=== PATIENT | male | born 1955 | race African-American/Black ===

== ENCOUNTER → 2016-04-03 | Outpatient (CLI) | payer BC ==
[~2016-04-03] MED LIST: ALL180 PO; ASPI81TA28 PO; CARV25TA PO; CRS/10 PO; DOXY100C76 PO; FURO40TA3 PO; FURO80TA63 PO; LISI-729 PO; PRED10TA PO; TRIA3AER NAE
[2016-04-03 10:08] LABS: HEMATOCRIT 46.2 % (42-52); MEAN CELL VOLUME 90.1 fL (80-100); MEAN CORPUSCULAR HGB CONC 32.3 g/dl (32-36); MEAN PLATELET VOLUME 11.3 fL (7.4-10.4); PLATELET COUNT 160 K/uL (130-400); RED BLOOD COUNT 5.13 M/uL (4.7-6.1); WHITE BLOOD COUNT 5.38 K/uL (4.8-10.8)
[2016-04-03 10:16] LABS: URINE APPEARANCE CLEAR (CLEAR); URINE BILIRUBIN NEG (NEG); URINE COLOR YELLOW; URINE EPITHELIAL CELL AUTO 0-5 /lpf (0-5); URINE NITRITE NEG (NEG); URINE PH 7.5 (4.5-7.5); URINE SPECIFIC GRAVITY 1.004 (1.000-1.030); UROBILINOGEN NEG (NEG)
[2016-04-03 10:17] LABS: URINE TOTAL PROTEIN < 5.0 mg/dl (0-11.9)
[2016-04-03 10:22] LABS: MANUAL MICROSCOPIC REQUIRED? NO; REVIEW REQ? NO
[2016-04-03 10:48] LABS: BLOOD UREA NITROGEN 19 mg/dl (7-18); BUN/CREATININE RATIO 12.1 (10-20); CALCIUM 8.6 mg/dl (8.5-10.1); CARBON DIOXIDE 30 mmol/L (21-32); CHLORIDE 103 mmol/L (98-107); GLUCOSE 101 mg/dl (70-99); PHOSPHORUS 2.9 mg/dl (2.5-4.9); POTASSIUM 3.5 mmol/L (3.5-5.1); SODIUM 141 mmol/L (136-145)
== END | disposition home or self-care (01) ==
LOC: C.LAB1850 09:22
PROVIDERS: ATTEND Internal Medicine Nephrology
DX: N25.81 Secondary hyperparathyroidism of renal origin (principal); N18.3 Chronic kidney disease, stage 3 (moderate); I12.9 Hypertensive chronic kidney disease with stage 1 through stage 4 chronic kidney disease, or unspecified chronic kidney disease; D64.9 Anemia, unspecified; E55.9 Vitamin D deficiency, unspecified

== ENCOUNTER 2016-09-04 17:01 | Inpatient (IN) | payer BC ==
[~2016-09-04] VITALS: Ht 182.9 cm; Wt 98.9 kg
[~2016-09-04 17:01] MED LIST changes: -ASPI81TA28 PO; -CARV25TA PO; -CRS/10 PO; -DOXY100C76 PO; -FURO40TA3 PO; -FURO80TA63 PO; -LISI-729 PO; -PRED10TA PO
[2016-09-04] MEDS ORDERED: CARV25TA PO (17:52)
[2016-09-04] MEDS ORDERED: CRS/10 PO (17:52)
[2016-09-04] MEDS ORDERED: DOXY100C76 PO (17:52)
[2016-09-04] MEDS ORDERED: FURO80TA63 PO (17:52)
[2016-09-04] MEDS ORDERED: LISI-729 PO (17:52)
[2016-09-04] MEDS ORDERED: ASPI81TA28 PO (17:52)
--- NOTE | 2016-09-04 18:20 | EMERGENCY ROOM VISIT NOTE ---
History Report prepared by Lizzeth: Latoya Walker Under the Supervision of: Dr. Kenn Chung M.D. First contact with patient: 18:07 Chief Complaint: SWELLING TO EXTREMITY Stated Complaint: SWELLING ON RT SIDE OF BODY History of Present Illness The patient is a 60 year old male who presents to the Emergency Room with complaints of constant right sided swelling beginning 2 and a half weeks ago. The patient states that he noticed his right foot swelling first 2 and a half weeks ago. He reports that he was feeling fine at his PCP appointment 1 month ago and 2 weeks later he was bit by something and started noticing swelling in his right foot. He notes that he was seen by a doctor and was put on Doxycycline without relief of his swelling. The patient complains of difficulty walking and weakness in the right arm and leg. He denies any slurred speech, fever, abdominal pain, chest pain, shortness of breath, diarrhea, urinary symptoms, back pain, and a rash. The patient denies any heavy alcohol use. He reports that he has a history of heart failure and takes baby aspirin. He notes that he has never had any symptoms similar to this before. Source of History: patient Onset: 2 and a half weeks ago Position: arm (right), leg (right) Quality: other (swelling) Timing: constant Associated Symptoms: + weakness, No fevers, No chest pain, No SOB, No abdominal pain, No back pain, No diarrhea, No urinary symptoms, No rash Note: The patient complains of difficulty walking. He denies any slurred speech. Review of Systems See HPI for pertinent positives & negatives. A total of 10 systems reviewed and were otherwise negative. Past Medical & Surgical Medical Problems: (1) CHF (congestive heart failure) Family History No pertinent family history stated. Social History Smoking Status: Never Smoker Alcohol Use: occasionally Marital Status: Housing Status: lives with significant other Occupation Status: retired Current/Historical Medications Scheduled Aspirin (Aspirin Ec), 81 MG PO DAILY Carvedilol (Coreg), 25 MG PO BID Doxycycline Monohydrate (Monodox), 100 MG PO BID Furosemide (Lasix), 80 MG PO DAILY Lisinopril (Prinivil), 5 MG PO BID Rosuvastatin Calcium (Crestor), 10 MG PO HS Allergies Coded Allergies: No Known Allergies (Verified , 09/04/16) Physical Exam Vital Signs Date Time Temp Pulse Resp B/P (MAP) Pulse Ox O2 Delivery O2 Flow Rate FiO2 09/04/16 20:59 83 20 135/85 97 Room Air 09/04/16 19:30 37.6 81 20 126/86 97 Room Air 09/04/16 17:17 37.0 82 18 101/69 99 Room Air Physical Exam GENERAL: Patient is well appearing and in no acute distress. HEENT: No acute trauma, normocephalic atraumatic, mucous membranes moist, no nasal congestion, no scleral icterus. NECK: No stridor, no adenopathy, no meningismus, trachea is midline. LUNGS: No dyspnea. Clear to auscultation and equal bilaterally. No wheeze, no rhonchi. HEART: Regular rate and rhythm. No murmurs, rubs, gallops appreciated. ABDOMEN: Soft, nontender, bowel sounds positive, no masses appreciated, no peritonitis. BACK: No midline tenderness, no CVA tenderness EXTREMITIES: Normal motion all extremities, no cyanosis, non-pitting edema of right arm and right leg, significant weakness of right arm specifically hand, and right leg specifically foot. NEUROLOGIC: Alert and oriented, no acute motor or sensory deficits, cranial nerves grossly intact. Patient has significant weakness of right arm specifically hand, and right leg specifically foot. SKIN: No rash, no jaundice, no diaphoresis. Medical Decision & Procedures ER Provider Diagnostic Interpretation: Radiology results and stated below per my review and radiologist interpretation: CT OF THE HEAD WITHOUT CONTRAST FINDINGS: Note is made of an 8 mm hyperdense focus with possible central calcification within the posterior left frontal lobe shown on axial image 23 of 32. There is an old right parietal infarct. There is a cavum septum pellucidum. Moderate white matter hypodensities are noted. Basilar cisterns are patent. There are no extra axial collections. There are no CT findings to suggest acute dural sinus thrombosis or acute territorial infarct. No significant calvarial abnormalities are present. Visualized portions of the sinuses and mastoid air cells are clear. IMPRESSION: 1. 8 mm hyperdense focus within the posterior left frontal lobe. This favors a small hyperdense lesion such as a cavernoma. However, a small focus of hemorrhage could appear similar. Either a short-term follow-up head CT or MRI of the brain is recommended. 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 3. Moderate white matter hypodensities. While nonspecific, these statistically reflect small vessel disease. Electronically signed by: Shadi Vogel M.D. 09/04/2016 7:09 PM Dictated Date/Time: 09/04/2016 7:03 PM CHEST ONE VIEW PORTABLE FINDINGS: Lung volumes are normal. Lungs are clear. No pneumothorax or pleural effusion is present. Cardiac size is normal. Mediastinal contours are normal. There is no evidence of pulmonary edema. IMPRESSION: No acute cardiopulmonary findings. Electronically signed by: Shadi Vogel M.D. 09/04/2016 7:12 PM Dictated Date/Time: 09/04/2016 7:12 PM Laboratory Results 09/04/16 18:11 Red Blood Count 4.70, Mean Corpuscular Volume 87.4, Mean Corpuscular Hemoglobin 28.1, Mean Corpuscular Hemoglobin Concent 32.1, Mean Platelet Volume 9.4, Neutrophils (%) (Auto) 74.7, Lymphocytes (%) (Auto) 14.0, Monocytes (%) (Auto) 9.8, Eosinophils (%) (Auto) 0.7, Basophils (%) (Auto) 0.2, Neutrophils # (Auto) 8.42, Lymphocytes # (Auto) 1.58, Monocytes # (Auto) 1.11, Eosinophils # (Auto) 0.08, Basophils # (Auto) 0.02 09/04/16 18:11 Test 09/04/16 18:11 White Blood Count 11.28 K/uL (4.8-10.8) Red Blood Count 4.70 M/uL (4.7-6.1) Hemoglobin 13.2 g/dL (14.0-18.0) Hematocrit 41.1 % (42-52) Mean Corpuscular Volume 87.4 fL (80-100) Mean Corpuscular Hemoglobin 28.1 pg (25-34) Mean Corpuscular Hemoglobin Concent 32.1 g/dl (32-36) Platelet Count 395 K/uL (130-400) Mean Platelet Volume 9.4 fL (7.4-10.4) Neutrophils (%) (Auto) 74.7 % Lymphocytes (%) (Auto) 14.0 % Monocytes (%) (Auto) 9.8 % Eosinophils (%) (Auto) 0.7 % Basophils (%) (Auto) 0.2 % Neutrophils # (Auto) 8.42 K/uL (1.4-6.5) Lymphocytes # (Auto) 1.58 K/uL (1.2-3.4) Monocytes # (Auto) 1.11 K/uL (0.11-0.59) Eosinophils # (Auto) 0.08 K/uL (0-0.5) Basophils # (Auto) 0.02 K/uL (0-0.2) RDW Standard Deviation 41.0 fL (36.4-46.3) RDW Coefficient of Variation 12.8 % (11.5-14.5) Immature Granulocyte % (Auto) 0.6 % Immature Granulocyte # (Auto) 0.07 K/uL (0.00-0.02) Erythrocyte Sedimentation Rate > 90 mm/hr (0-14) Anion Gap 11.0 mmol/L (3-11) Est Creatinine Clear Calc Drug Dose 55.8 ml/min Estimated GFR () 50.0 Estimated GFR (Non- 43.2 BUN/Creatinine Ratio 15.5 (10-20) Calcium Level 9.6 mg/dl (8.5-10.1) Total Bilirubin 1.1 mg/dl (0.2-1) Direct Bilirubin mg/dl (0-0.2) Aspartate Amino Transf (AST/SGOT) 38 U/L (15-37) Alanine Aminotransferase (ALT/SGPT) 62 U/L (12-78) Alkaline Phosphatase 89 U/L (45-117) Total Creatine Kinase 121 U/L (39-308) Creatine Kinase MB 0.6 ng/ml (0.5-3.6) Creatine Kinase MB Ratio 0.5 (0-3.0) Troponin I < 0.015 ng/ml (0-0.045) C-Reactive Protein 9.88 mg/dl (0-0.29) Pro-B-Type Natriuretic Peptide 155 pg/ml (0-900) Total Protein 8.7 gm/dl (6.4-8.2) Albumin 2.9 gm/dl (3.4-5.0) Chemistry Specimen Hemolysis Rheumatoid Factor < 10.0 U/mL (0-15) Lyme Disease IgG Antibody NEG (NEG) Lyme Disease IgM Antibody NEG (NEG) Laboratory results as reviewed by me. ED Course 1807: The patient was evaluated in room A11. A complete history and physical exam was performed. 1915: I spoke to Dr. Grimm of neurology. He agrees that we can do the workup here and she advised that I discus with the hospitalist getting an MRI and MRA of the brain. 1920: Discussed the patient's case with Dr. Morataya. The patient will be evaluated for further treatment and disposition. 1922: I reevaluated the patient and he is stable. 1936: Upon reevaluation, the patient is doing well. Discussed results and treatment plan with the patient. He verbalized understanding and agreement with the treatment plan. The patient will be evaluated for further management. Medical Decision Differential: Stroke, DVT, CHF, Arterial Occlusion, Infectious, Joint Effusion, Trauma, Lymphedema, Idiopathic, Trauma, amongst other pathologies entertained. Medication Reconciliation: I attest that I have personally reviewed the patient 's current medication list. Blood pressure screening: Patient was found to have normal blood pressure on screening and does not require follow-up. He will be monitored by hospitalist. 60 yr old male with right arm and leg weakness ongoing for the last 2 weeks. Initially thought to be due to bug bite and stared on Doxy. Admits weakness which by exam is actually quite profound. Admits ongoing for 2 weeks thus he is in no way TPA candidate for stroke nor is there reason to call stroke alert. Given right arm/leg weakness sent to CT showing left posterior frontal lobe abnormality of cavernoma vs hemorrhagic area. No shift nor evidence of need for acute neurosurgical intervention. Other labs with some mild Cr elevation but this is baseline for him. Lyme negative. US leg/arm negative for dvt. Discussed with Neuro who agrees inpatient work-up here. Discussed with hospitalist for further evaluation/treatment. Consults Time Called: 1909 Consulting Physician: Dr. Grimm - Neurology Returned Call: [address] Grimm of neurology. He agrees that we can do the workup here and she advised that I discus with the hospitalist getting an MRI and MRA of the brain. Additional Consults: Time Called: 1915 Consulted Physician: Dr. Walter Costa Returned Call: 1920 Additional Comments: [facility] The patient will be evaluated for further treatment and disposition. Impression Primary Impression: Right sided weakness Additional Impressions: Swelling of right upper extremity Swelling of right lower extremity Abnormal head CT Scribe Attestation The scribe's documentation has been prepared under my direction and personally reviewed by me in its entirety. I confirm that the note above accurately reflects all work, treatment, procedures, and medical decision making performed by me. Departure Information Dispostion Being Evaluated By Hospitalist Referrals Robert Dickey PA-C (PCP) Patient Instructions My [facility] Problem Qualifiers
[2016-09-04 18:25] LABS: BASO % 0.2 %; BASO ABS # 0.02 K/uL (0-0.2); COMPLETE YES; EOS % 0.7 %; HEMATOCRIT 41.1 % (42-52); IG% 0.6 %; LYMPH ABS # 1.58 K/uL (1.2-3.4); MEAN CELL VOLUME 87.4 fL (80-100); MEAN CORPUSCULAR HEMOGLOBIN 28.1 pg (25-34); MEAN CORPUSCULAR HGB CONC 32.1 g/dl (32-36); MEAN PLATELET VOLUME 9.4 fL (7.4-10.4); MONO % 9.8 %; NEUT % 74.7 %; PLATELET COUNT 395 K/uL (130-400); WHITE BLOOD COUNT 11.28 K/uL (4.8-10.8)
--- NOTE | 2016-09-04 19:11 | DIAGNOSTIC IMAGING REPORT ---
CT OF THE HEAD WITHOUT CONTRAST CLINICAL HISTORY: Generalized Weakness COMPARISON STUDY: No previous studies for comparison. CT DOSE: 884.08 mGy.cm TECHNIQUE: Helical axial images of the head were obtained without IV contrast. Automated exposure control was utilized for the study. FINDINGS: Note is made of an 8 mm hyperdense focus with possible central calcification within the posterior left frontal lobe shown on axial image 23 of 32. There is an old right parietal infarct. There is a cavum septum pellucidum. Moderate white matter hypodensities are noted. Basilar cisterns are patent. There are no extra axial collections. There are no CT findings to suggest acute dural sinus thrombosis or acute territorial infarct. No significant calvarial abnormalities are present. Visualized portions of the sinuses and mastoid air cells are clear. IMPRESSION: 1. 8 mm hyperdense focus within the posterior left frontal lobe. This favors a small hyperdense lesion such as a cavernoma. However, a small focus of hemorrhage could appear similar. Either a short-term follow-up head CT or MRI of the brain is recommended. 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 3. Moderate white matter hypodensities. While nonspecific, these statistically reflect small vessel disease. Electronically signed by: Shadi Vogel M.D. 09/04/2016 7:09 PM Dictated Date/Time: 09/04/2016 7:03 PM
--- NOTE | 2016-09-04 19:14 | DIAGNOSTIC IMAGING REPORT ---
CHEST ONE VIEW PORTABLE CLINICAL HISTORY: Generalized Weakness COMPARISON STUDY: Chest radiograph January 21, 2007. FINDINGS: Lung volumes are normal. Lungs are clear. No pneumothorax or pleural effusion is present. Cardiac size is normal. Mediastinal contours are normal. There is no evidence of pulmonary edema. IMPRESSION: No acute cardiopulmonary findings. Electronically signed by: Shadi Vogel M.D. 09/04/2016 7:12 PM Dictated Date/Time: 09/04/2016 7:12 PM
[2016-09-04 19:50] LABS: ALKALINE PHOSPHATASE 89 U/L (45-117); ALT/SGPT 62 U/L (12-78); BLOOD UREA NITROGEN 26 mg/dl (7-18); BUN/CREATININE RATIO 15.5 (10-20); CALCIUM 9.6 mg/dl (8.5-10.1); CARBON DIOXIDE 27 mmol/L (21-32); CHLORIDE 101 mmol/L (98-107); GLUCOSE 85 mg/dl (70-99)
[2016-09-04 20:02] LABS: LYME DISEASE AB IGG NEG (NEG); LYME DISEASE AB IGM NEG (NEG)
[2016-09-04 20:51] LABS: AST/SGOT 38 U/L (15-37); CKMB/CK RATIO 0.5 (0-3.0); POTASSIUM 4.3 mmol/L (3.5-5.1); SODIUM 139 mmol/L (136-145)
--- NOTE | 2016-09-04 20:59 | DIAGNOSTIC IMAGING REPORT ---
RIGHT UPPER EXTREMITY VENOUS DOPPLER ULTRASOUND CLINICAL HISTORY: Right arm swelling. COMPARISON STUDY: No previous studies for comparison. FINDINGS: No deep venous thrombus was identified within the right upper extremity. IMPRESSION: No right upper extremity deep venous thrombus identified. Electronically signed by: Shadi Vogel M.D. 09/04/2016 8:58 PM Dictated Date/Time: 09/04/2016 8:57 PM
--- NOTE | 2016-09-04 21:00 | DIAGNOSTIC IMAGING REPORT ---
RIGHT LOWER EXTREMITY VENOUS DOPPLER CLINICAL HISTORY: Right lower extremity swelling. COMPARISON STUDY: No previous studies for comparison. TECHNIQUE: Sonography of the deep venous system of the right lower extremity was performed. Compression and augmentation were evaluated. FINDINGS: The common femoral, superficial femoral and popliteal veins were compressible. Augmentation was normal. Flow was shown within the deep calf vessels. IMPRESSION: No evidence of deep venous thrombus within the right lower extremity. Electronically signed by: Shadi Vogel M.D. 09/04/2016 8:58 PM Dictated Date/Time: 09/04/2016 8:58 PM
[2016-09-04] MEDS ORDERED: ACETAMINOPHEN 325 MG TAB PO PRN (21:45)
[2016-09-04] MEDS ORDERED: MAGNESIUM HYDROXIDE SUSP 30 ML UDC PO PRN (21:45)
[2016-09-04] MEDS ORDERED: ALUMINUM/MAGNESIUM/SIMETH (MAALOX MAX) 30 ML UDC PO PRN (21:45)
[2016-09-04] MEDS ORDERED: ONDANSETRON INJ 2 MG/ML 2 ML VIAL IV PRN (21:45)
--- NOTE | 2016-09-04 22:54 | DIAGNOSTIC IMAGING REPORT ---
RIGHT KNEE 3 VIEWS CLINICAL HISTORY: Right knee swelling. COMPARISON: None FINDINGS: Alignment of the right knee is anatomic. There is spurring of the tibial tubercle. There is a large right knee joint effusion. No fracture is identified. There is soft tissue swelling of the right knee. IMPRESSION: 1. No acute fracture. 2. Large right knee joint effusion, a nonspecific finding. Electronically signed by: Shadi Vogel M.D. 09/04/2016 10:52 PM Dictated Date/Time: 09/04/2016 10:51 PM
[2016-09-04 22:56] LABS: C-REACTIVE PROTEIN 9.88 mg/dl (0-0.29); RHEUMATOID FACTOR < 10.0 U/mL (0-15)
--- NOTE | 2016-09-04 22:58 | DIAGNOSTIC IMAGING REPORT ---
RIGHT ANKLE MIN 3 VIEWS ROUTINE CLINICAL HISTORY: Right ankle pain and swelling. Decreased range of motion. COMPARISON: None FINDINGS: Alignment of the right ankle is anatomic. There is posterior and plantar calcaneal spurring. There is moderate vascular calcification. There is diffuse soft tissue swelling. Talar dome is intact. There is no acute fracture. IMPRESSION: 1. No acute fracture or dislocation of the right ankle. 2. Marked soft tissue swelling of the right ankle. Electronically signed by: Shadi Vogel M.D. 09/04/2016 10:57 PM Dictated Date/Time: 09/04/2016 10:56 PM
--- NOTE | 2016-09-04 23:02 | DIAGNOSTIC IMAGING REPORT ---
RIGHT FOOT MIN 3 VIEWS ROUTINE CLINICAL HISTORY: Right foot pain and swelling. COMPARISON: None FINDINGS: Tarsometatarsal joints are intact. There are suspected erosions of the right first metatarsal head. There is soft tissue swelling along the medial aspect the right first metatarsophalangeal joint. Joint spaces are relatively preserved. There may also be erosions of the distal aspect of the proximal phalanx of the right first toe. There is posterior plantar calcaneal spurring. There is no acute fracture within the right foot. IMPRESSION: 1. No acute fracture. 2. Erosions of the right first metatarsal head with associated soft tissue swelling. The findings raise the possibility of gout. Electronically signed by: Shadi Vogel M.D. 09/04/2016 11:01 PM Dictated Date/Time: 09/04/2016 10:58 PM
--- NOTE | 2016-09-04 23:04 | DIAGNOSTIC IMAGING REPORT ---
RIGHT WRIST MIN 3 VIEWS ROUTINE CLINICAL HISTORY: Right wrist pain and swelling. COMPARISON: None FINDINGS: No acute fracture is identified. Alignment is anatomic. There are equivocal small erosions adjacent to the proximal carpal row and distal radioulnar joint. IMPRESSION: 1. No acute fracture or dislocation of the right wrist. 2. Possible erosions of the proximal carpal row/distal radioulnar joint, a nonspecific finding. Electronically signed by: Shadi Vogel M.D. 09/04/2016 11:03 PM Dictated Date/Time: 09/04/2016 10:57 PM
[2016-09-04] MEDS ORDERED: GADAVIST IV PRN (23:45)
[2016-09-05] VITALS (10 sets, daily range): BP systolic 112–140; BP diastolic 70–75; PULSE 70–88; TEMP 36.5–37.4; O2SAT 94–100; Ht 182.9 cm; Wt 98.9 kg
--- NOTE | 2016-09-05 00:09 | History and Physical ---
History & Physical Date & Time of Service: Sep 04, 2016 at 23:54 Chief Complaint: Abnormal Head Ct,Swelling Of Right Lower Extremity Primary Care Physician: Robert Dickey PA-C History of Present Illness Source: patient, family, clinic records This is a 60 year old male a PMH of idiopathic cardiomyopathy and mild systolic CHF, last EF of ~ 47%, CKD stage 3, HTN, HLD presents with R knee, ankle, wrist swelling for the past few weeks. States that his R foot began swelling up and becoming painful a few weeks back; he went to his PCP on 08/20 and was given doxycycline for possible tick-borne illness/arthritis; he states that initially he felt better, but then it worsened again. His knee became significantly painful to any ROM to the point where he was using his cane. He then noticed his right wrist swelling and became concerned and came to the ER. Upon presentation, he had a head CT done due to significant weakness on the R side. Head CT showed an 8mm cavernoma vs. bleed. Neurology consulted and recommended keeping the patient here and performing MRI/MRA of the head. Currently, he has very decreased and painful ROM of the knee/ankle; swelling of foot/ankle/knee on the R; no rash, not warm to touch, no cuts/abrasions; no trauma noted by the patient. No fevers/chills, no shortness of breath/chest pain , no nausea/vomiting/diarrhea, no urinary symptoms. Past Medical/Surgical History Medical Problems: (1) CHF (congestive heart failure) Status: Resolved Social History Smoking Status: Never Smoker Marital Status: Occupational Status: retired Immunizations History of Influenza Vaccine: No History of Tetanus Vaccine?: YES-IN THE 1980S History of Pneumococcal: No History of Hepatitis B Vaccine: YES-IN THE Multi-Drug Resistant Organisms History of MDRO: No Allergies Coded Allergies: No Known Allergies (Verified , 09/04/16) Home Medications Scheduled Aspirin (Aspirin Ec), 81 MG PO DAILY Carvedilol (Coreg), 25 MG PO BID Doxycycline Monohydrate (Monodox), 100 MG PO BID Furosemide (Lasix), 80 MG PO DAILY Lisinopril (Prinivil), 5 MG PO BID Rosuvastatin Calcium (Crestor), 10 MG PO HS Review of Systems Constitutional: No fever, No chills, No weakness Eyes: No worsening of vision ENT: No hearing loss Respiratory: No cough, No sputum, No wheezing, No shortness of breath, No dyspnea on exertion, No dyspnea at rest Cardiovascular: + edema, No chest pain, No palpitations Abdomen: No pain, No nausea, No vomiting, No diarrhea, No constipation Musculoskeletal: + joint pain (R knee, ankle, wrist, foot), + muscle pain, + swelling, + calf pain Genitourinary - Male: No hematuria, No dysuria, No urinary frequency, No urinary urgency Neurologic: No paralysis, No weakness, No numbness/tingling, No vertigo, No balance problems Psychiatric: No depression symptoms, No anxiety, No insomnia Endocrine: No fatigue Hematologic / Lymphatic: No abnormal bleeding/bruising Integumentary: No rash, No itch, No new/changing skin lesions, No color change , No bleeding Allergic / Immunologic: No environmental allergies, No seasonal allergies Physical Exam Vital Signs Date Time Temp Pulse Resp B/P (MAP) Pulse Ox O2 Delivery O2 Flow Rate FiO2 09/04/16 22:46 52 20 107/60 99 Room Air 09/04/16 20:59 83 20 135/85 97 Room Air 09/04/16 19:30 37.6 81 20 126/86 97 Room Air 09/04/16 17:17 37.0 82 18 101/69 99 Room Air General Appearance: no apparent distress Head: normocephalic, atraumatic Eyes: normal inspection ENT: hearing grossly normal Neck: supple Respiratory/Chest: chest non-tender, lungs clear, normal breath sounds, no respiratory distress, no accessory muscle use Cardiovascular: regular rate, rhythm, no murmur, normal peripheral pulses Abdomen/GI: normal bowel sounds, non tender, soft, no organomegaly Back: normal inspection, no CVA tenderness, no muscle spasm, normal range of motion Extremities/Musculoskelatal: + swelling, + pertinent finding (swelling, tenderness to palpation, decreased/painful ROM of the R wrist, R ankle, R foot, R knee) Neurologic/Psych: alert, normal mood/affect Skin: normal color Lymphatic: no adenopathy Diagnostics Laboratory Results Results Past 24 Hours Test 09/04/16 18:11 Range/Units White Blood Count 11.28 4.8-10.8 K/uL Red Blood Count 4.70 4.7-6.1 M/uL Hemoglobin 13.2 14.0-18.0 g/dL Hematocrit 41.1 42-52 % Mean Corpuscular Volume 87.4 80-100 fL Mean Corpuscular Hemoglobin 28.1 25-34 pg Mean Corpuscular Hemoglobin Concent 32.1 32-36 g/dl Platelet Count 395 130-400 K/uL Mean Platelet Volume 9.4 7.4-10.4 fL Neutrophils (%) (Auto) 74.7 % Lymphocytes (%) (Auto) 14.0 % Monocytes (%) (Auto) 9.8 % Eosinophils (%) (Auto) 0.7 % Basophils (%) (Auto) 0.2 % Neutrophils # (Auto) 8.42 1.4-6.5 K/uL Lymphocytes # (Auto) 1.58 1.2-3.4 K/uL Monocytes # (Auto) 1.11 0.11-0.59 K/uL Eosinophils # (Auto) 0.08 0-0.5 K/uL Basophils # (Auto) 0.02 0-0.2 K/uL RDW Standard Deviation 41.0 36.4-46.3 fL RDW Coefficient of Variation 12.8 11.5-14.5 % Immature Granulocyte % (Auto) 0.6 % Immature Granulocyte # (Auto) 0.07 0.00-0.02 K/uL Erythrocyte Sedimentation Rate > 90 0-14 mm/hr Sodium Level 139 136-145 mmol/L Potassium Level 4.3 3.5-5.1 mmol/L Chloride Level 101 98-107 mmol/L Carbon Dioxide Level 27 21-32 mmol/L Anion Gap 11.0 3-11 mmol/L Blood Urea Nitrogen 26 7-18 mg/dl Creatinine 1.70 0.60-1.40 mg/dl Est Creatinine Clear Calc Drug Dose 55.8 ml/min Estimated GFR () 50.0 Estimated GFR (Non- 43.2 BUN/Creatinine Ratio 15.5 10-20 Random Glucose 85 70-99 mg/dl Calcium Level 9.6 8.5-10.1 mg/dl Total Bilirubin 1.1 0.2-1 mg/dl Direct Bilirubin 0-0.2 mg/dl Aspartate Amino Transf (AST/SGOT) 38 15-37 U/L Alanine Aminotransferase (ALT/SGPT) 62 12-78 U/L Alkaline Phosphatase 89 45-117 U/L Total Creatine Kinase 121 39-308 U/L Creatine Kinase MB 0.6 0.5-3.6 ng/ml Creatine Kinase MB Ratio 0.5 0-3.0 Troponin I < 0.015 0-0.045 ng/ml C-Reactive Protein 9.88 0-0.29 mg/dl Pro-B-Type Natriuretic Peptide 155 0-900 pg/ml Total Protein 8.7 6.4-8.2 gm/dl Albumin 2.9 3.4-5.0 gm/dl Chemistry Specimen Hemolysis Rheumatoid Factor < 10.0 0-15 U/mL Lyme Disease IgG Antibody NEG NEG Lyme Disease IgM Antibody NEG NEG Diagnostic Radiology CHEST ONE VIEW PORTABLE CLINICAL HISTORY: Generalized Weakness COMPARISON STUDY: Chest radiograph January 21, 2007. FINDINGS: Lung volumes are normal. Lungs are clear. No pneumothorax or pleural effusion is present. Cardiac size is normal. Mediastinal contours are normal. There is no evidence of pulmonary edema. IMPRESSION: No acute cardiopulmonary findings. CT OF THE HEAD WITHOUT CONTRAST CLINICAL HISTORY: Generalized Weakness COMPARISON STUDY: No previous studies for comparison. CT DOSE: 884.08 mGy.cm TECHNIQUE: Helical axial images of the head were obtained without IV contrast. Automated exposure control was utilized for the study. FINDINGS: Note is made of an 8 mm hyperdense focus with possible central calcification within the posterior left frontal lobe shown on axial image 23 of 32. There is an old right parietal infarct. There is a cavum septum pellucidum. Moderate white matter hypodensities are noted. Basilar cisterns are patent. There are no extra axial collections. There are no CT findings to suggest acute dural sinus thrombosis or acute territorial infarct. No significant calvarial abnormalities are present. Visualized portions of the sinuses and mastoid air cells are clear. IMPRESSION: 1. 8 mm hyperdense focus within the posterior left frontal lobe. This favors a small hyperdense lesion such as a cavernoma. However, a small focus of hemorrhage could appear similar. Either a short-term follow-up head CT or MRI of the brain is recommended. 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 3. Moderate white matter hypodensities. While nonspecific, these statistically reflect small vessel disease. Impression Assessment and Plan This is a 60 year old male a PMH of idiopathic cardiomyopathy and mild systolic CHF, last EF of ~ 47%, CKD stage 3, HTN, HLD presents with R knee, ankle, wrist swelling for the past few weeks. Acute Polyarticular Swelling R knee, ankle, foot, wrist swelling Lyme negative check CRP, ESR, Rheumatoid Factor radiographs pending check urinalysis may need rheumatology input if persistent refusing pain medications at this time Cavernoma 8mm cavernoma noted on Head CT will check Brain MRI with and without contrast, check MRA neurology consultation monitor in tele hold aspirin Idiopathic Cardiomyopathy last echo, with EF ~47% updated echo hold Lasix continue Coreg, Lisinopril CKD stage 3 creatinine = 1.7 creat seems to be around baseline hold Lasix for now, check echo, may need lower dose of Lasix to restart for discharge DVT ppx SCD on the L no heparin; possible bleed, check MRI FULL CODE VTE Prophylaxis VTE Risk Assessment Done? Y/N: Yes Risk Level: Low
[2016-09-05] MEDS: CARVEDILOL 25 MG TAB PO SCH ×3 (00:20→20:49)
[2016-09-05] MEDS: LISINOPRIL 5 MG TAB PO SCH ×3 (00:21→20:49)
[2016-09-05] MEDS: ROSUVASTATIN CALCIUM 10 MG TAB PO SCH ×2 (00:21→20:48)
--- NOTE | 2016-09-05 06:31 | DIAGNOSTIC IMAGING REPORT ---
Brain MRA HISTORY: Mental status change f/u cavernoma; r/o bleed TECHNIQUE: 3-D [id number] MRA of the brain was performed without contrast. COMPARISON STUDY: None. FINDINGS: Visualized intracranial internal carotid arteries, distal vertebral arteries, and basilar artery are widely patent. There is no significant stenosis, occlusion, or aneurysm seen within the bilateral ACAs, MCAs, or rn lpn cna. 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 Electronically signed by: Robert Callahan M.D. 09/05/2016 6:29 AM Dictated Date/Time: 09/05/2016 6:29 AM
[2016-09-05 06:43] LABS: CALCIUM 9.3 mg/dl (8.5-10.1); CREATININE 1.5 mg/dl (0.60-1.40); POTASSIUM 3.8 mmol/L (3.5-5.1)
[2016-09-05 06:55] LABS: HEMATOCRIT 36.9 % (42-52); MEAN CELL VOLUME 87.9 fL (80-100); MEAN CORPUSCULAR HEMOGLOBIN 28.3 pg (25-34); MEAN CORPUSCULAR HGB CONC 32.2 g/dl (32-36); PLATELET COUNT 364 K/uL (130-400); WHITE BLOOD COUNT 8.71 K/uL (4.8-10.8)
--- NOTE | 2016-09-05 07:12 | DIAGNOSTIC IMAGING REPORT ---
MRI OF THE BRAIN COMBO CLINICAL HISTORY: Follow-up abnormal CT scan. COMPARISON STUDY: CT of the brain dated 09/04/2016. TECHNIQUE: MRI of the brain was performed utilizing various T1 and T2-weighted sequences in the axial, sagittal, and coronal planes. Contrast-enhanced sequences were acquired following the administration of 9.5 cc of Gadavist. FINDINGS: Brain parenchyma: There are age-related involutional changes noting mild to moderate patchy subcortical and periventricular microangiopathic disease. There is a small focus of right parietal encephalomalacia consistent with a remote infarct. There is a faint focus of hyperenhancement seen in the left parietal lobe on axial postcontrast image #16. There is faint susceptibility artifact in this region, and this corresponds to the abnormality seen by CT. A tiny cavernoma is favored. No additional similar-appearing lesions are identified. No additional abnormal enhancement is seen on the postcontrast images. There is no hemorrhage or mass effect. There is no restricted diffusion to suggest acute ischemia. Escobar-white matter differentiation is preserved. No extra-axial fluid collection is seen. The cerebellar tonsils are normal in configuration. Ventricles, sulci, and cisterns: Prominent secondary to involutional change. Cavum septum pellucidum is incidentally noted. Pituitary and sella: Unremarkable. Intracranial vasculature: Normal flow voids are maintained at the skull base. Orbits: The bony orbits are grossly intact. Orbital contents are normal in appearance. Sinuses and mastoids: Clear. Calvarium: Unremarkable. Cervical cord: Partially visualized cervical spinal cord is normal in morphology and signal intensity. IMPRESSION: 1. There is a faint focus of hypervascularity in the left parietal lobe with trace associated susceptibility artifact. This is nonspecific but favors a tiny cavernoma. Six-month follow-up MRI is recommended for reassessment. 2. No acute intracranial abnormality is seen. There is no acute hemorrhage, mass effect, or evidence of acute ischemia. Electronically signed by: Rommel Bowling M.D. 09/05/2016 7:11 AM Dictated Date/Time: 09/05/2016 7:06 AM
[2016-09-05] MEDS ORDERED: ETHYL CHLORIDE AER SPR 100 ML CAN EXT ONE (11:15)
--- NOTE | 2016-09-05 12:31 | Progress Note ---
Medicine Progress Note Date & Time of Visit: Sep 05, 2016 at 12:09. Subjective Pt was seen and examined Lying in bed comfortable with at bedside Pt said that he feels ok He said that the right knee swelling seems to improve slightly He said that he casing fluid tender his right foot is very swelling he believes that he twisted his right ankle he does have some weakness in the right hand in the last few days denies any chest pain, palpitation, dizziness and SOB Objective Last 8 Hrs Date Time Temp Pulse Resp B/P (MAP) Pulse Ox O2 Delivery O2 Flow Rate FiO2 09/05/16 11:28 36.7 70 16 116/72 (87) 100 Room Air 09/05/16 08:02 36.5 74 18 117/74 (88) 94 Room Air 09/05/16 08:00 Room Air 09/05/16 08:00 94 Room Air Physical Exam: General- No acute distress Head- atraumatic Eyes- PERRL, EOMI ENT- oropharynx clear Neck- supple, no JVD Lungs- clear to auscultation and percussion Heart- regular rhythm; no murmur Abdomen- normal bowel sounds, soft Extremities- no calf tenderness, right knee and right foot swelling and tenderness Neuro- alert, oriented x 3; PERRL, EOMI; no facial palsy; no dysarthria; slight decrease in RUE strength Skin- warm & dry Laboratory Results: Last 24 Hours Test 09/04/16 18:11 09/05/16 05:50 White Blood Count 11.28 K/uL 8.71 K/uL Red Blood Count 4.70 M/uL 4.20 M/uL Hemoglobin 13.2 g/dL 11.9 g/dL Hematocrit 41.1 % 36.9 % Mean Corpuscular Volume 87.4 fL 87.9 fL Mean Corpuscular Hemoglobin 28.1 pg 28.3 pg Mean Corpuscular Hemoglobin Concent 32.1 g/dl 32.2 g/dl Platelet Count 395 K/uL 364 K/uL Mean Platelet Volume 9.4 fL 10.0 fL Neutrophils (%) (Auto) 74.7 % Lymphocytes (%) (Auto) 14.0 % Monocytes (%) (Auto) 9.8 % Eosinophils (%) (Auto) 0.7 % Basophils (%) (Auto) 0.2 % Neutrophils # (Auto) 8.42 K/uL Lymphocytes # (Auto) 1.58 K/uL Monocytes # (Auto) 1.11 K/uL Eosinophils # (Auto) 0.08 K/uL Basophils # (Auto) 0.02 K/uL RDW Standard Deviation 41.0 fL 41.6 fL RDW Coefficient of Variation 12.8 % 13.0 % Immature Granulocyte % (Auto) 0.6 % Immature Granulocyte # (Auto) 0.07 K/uL Erythrocyte Sedimentation Rate > 90 mm/hr Sodium Level 139 mmol/L 139 mmol/L Potassium Level 4.3 mmol/L 3.8 mmol/L Chloride Level 101 mmol/L 102 mmol/L Carbon Dioxide Level 27 mmol/L 29 mmol/L Anion Gap 11.0 mmol/L 8.0 mmol/L Blood Urea Nitrogen 26 mg/dl 26 mg/dl Creatinine 1.70 mg/dl 1.50 mg/dl Est Creatinine Clear Calc Drug Dose 55.8 ml/min 65.6 ml/min Estimated GFR () 50.0 58.2 Estimated GFR (Non- 43.2 50.2 BUN/Creatinine Ratio 15.5 17.0 Random Glucose 85 mg/dl 94 mg/dl Calcium Level 9.6 mg/dl 9.3 mg/dl Total Bilirubin 1.1 mg/dl Direct Bilirubin mg/dl Aspartate Amino Transf (AST/SGOT) 38 U/L Alanine Aminotransferase (ALT/SGPT) 62 U/L Alkaline Phosphatase 89 U/L Total Creatine Kinase 121 U/L Creatine Kinase MB 0.6 ng/ml Creatine Kinase MB Ratio 0.5 Troponin I < 0.015 ng/ml C-Reactive Protein 9.88 mg/dl Pro-B-Type Natriuretic Peptide 155 pg/ml Total Protein 8.7 gm/dl Albumin 2.9 gm/dl Chemistry Specimen Hemolysis Rheumatoid Factor < 10.0 U/mL Lyme Disease IgG Antibody NEG Lyme Disease IgM Antibody NEG Hepatitis C Antibody NEG Assessment & Plan Acute Polyarticular Swelling Present with R knee, ankle, foot, wrist swelling Lyme titer negative Elevated CRP and ESR Rheumatoid Factor negative Possible related to inflammatory process, such as gout or pseudogout WBC today wnl Right knee xray showed Large right knee joint effusion Right ankle xray showed marked soft tissue swelling of the right ankle. Right foot xray showed Erosions of the right first metatarsal head with associated soft tissue swelling refusing pain medications at this time Will start on a course of steroid since creatine was elevated Ortho consulted for large knee effusion Cavernoma 8mm cavernoma noted on Head CT Brain MRI showed faint focus of hypervascularity in the left parietal lobe might associated with cavernoma. follow-up MRI as an outpatient MRA head was unremarkable neurology consulted- pending will resume aspirin Idiopathic Cardiomyopathy last echo, with EF ~47% Echo pending asymptomatic hold Lasix due to elevated creatine continue Coreg, Lisinopril CKD stage 3 creatinine = 1.7 on admission creat today 1.5 Continue to hold lasix DVT ppx SCD on the L will start on heparin subq if ok with nuero CODE STATUS FULL CODE Consultants: Neurology Ortho Current Inpatient Medications: Current Inpatient Medications Medications (Trade) Dose Ordered Sig/Dylon Route Start Time Stop Time Status Last Admin Dose Admin Acetaminophen (Tylenol Tab) 650 mg Q4H PRN PO 09/04/16 21:45 10/04/16 21:44 Al Hydrox/Mg Hydrox/Simethicone (Maalox Max Susp) 15 ml Q4H PRN PO 09/04/16 21:45 10/04/16 21:44 Magnesium Hydroxide (Milk Of Magnesia Susp) 30 ml Q12H PRN PO 09/04/16 21:45 10/04/16 21:44 Ondansetron HCl (Zofran Inj) 4 mg Q6H PRN IV 09/04/16 21:45 10/04/16 21:44 Carvedilol (Coreg Tab) 25 mg BID PO 09/05/16 09:00 10/05/16 08:59 09/05/16 08:11 25 MG Lisinopril (Zestril Tab) 5 mg BID PO 09/05/16 09:00 10/05/16 08:59 09/05/16 08:11 5 MG Rosuvastatin Calcium (Crestor Tab) 10 mg HS PO 09/05/16 21:00 10/05/16 20:59 09/05/16 00:21 10 MG Gadobutrol (Gadavist) 9.5 mmol UD PRN IV 09/04/16 23:45 09/08/16 23:44 Ethyl Chloride (Ethyl Chloride Aerosol) 1 ml ONE EXT 09/05/16 11:15 10/05/16 11:14 UNV
--- NOTE | 2016-09-05 12:40 | ECHOCARDIOGRAM REPORT ---
*NOTICE TO RECEIVING [employer] This information is strictly Confidential and protected under [place] law. [place] law prohibits you from making any further disclosure of this information unless further disclosure is expressly permitted by the written consent of the person to whom it pertains or is authorized by law. A general authorization for the release of medical or other information is not sufficient for this purpose. Hospital accepts no responsibility if the information is made available to any other person, INCLUDING THE PATIENT. Interpretation Summary * Name: SHAHNAZ COOPER Study Date: 09/05/2016 06:30 AM BP: 140/75 mmHg * Patient Location: [facility]\S\[id number]\1 HR: 77 * : 1955 (M/d/yyyy) Gender: Male Height: 70 in * Age: 60 yrs Ethnicity: AA Weight: 216 lb * Ordering Physician: David Watson * Referring Physician: Oli Dorsey D.O. * * BSA: 2.2 m2 * -- Conclusions -- * Left ventricular systolic function is normal. * Grade I diastolic dysfunction, (abnormal relaxation pattern). * Right ventricular systolic pressure is normal. Procedure Details * Left Ventricle The left ventricle is grossly normal size. There is normal left ventricular wall thickness. Ejection Fraction = 55-60%. Left ventricular systolic function is normal. Grade I diastolic dysfunction, (abnormal relaxation pattern). * Right Ventricle The right ventricle is normal in size and function. * Atria The left atrial size is normal. Right atrial size is normal. * Mitral Valve The mitral valve leaflets appear thickened, but open well. Significant mitral regurgitation is absent. * Tricuspid Valve The tricuspid valve is not well visualized, but is grossly normal. There is mild tricuspid regurgitation. Right ventricular systolic pressure is normal. * Aortic Valve The aortic valve is normal in structure and function. No hemodynamically significant valvular aortic stenosis. There is no significant aortic regurgitation. * Great Vessels The aortic root is normal size. * Pericardium/Pleural There is no pericardial effusion. * * MMode 2D Measurements and Calculations * IVSd 0.90 cm * * LVIDd 5.4 cm * LVIDs 3.8 cm * LVPWd 1.1 cm * * IVS/LVPW 0.81 * FS 29.5 % * EDV(Teich) 140.8 ml * ESV(Teich) 62.0 ml * EF(Teich) 56.0 % * * EDV(cubed) 156.7 ml * ESV(cubed) 54.9 ml * EF(cubed) 64.9 % * * LV mass(C)d 206.8 grams * LV mass(C)dI 95.9 grams/m\S\2 * * SV(Teich) 78.8 ml * SI(Teich) 36.5 ml/m\S\2 * SV(cubed) 101.8 ml * SI(cubed) 47.2 ml/m\S\2 * * Ao root diam 3.5 cm * Ao root area 9.6 cm\S\2 * * LVOT diam 2.1 cm * LVOT area 3.3 cm\S\2 * * LVOT area(traced) 3.5 cm\S\2 * * LVAd ap4 40.9 cm\S\2 * LVLd ap4 9.3 cm * EDV(MOD-sp4) 150.0 ml * LVAs ap4 23.8 cm\S\2 * LVLs ap4 7.2 cm * ESV(MOD-sp4) 65.8 ml * EF(MOD-sp4) 56.1 % * * LVAd ap2 37.5 cm\S\2 * LVLd ap2 9.1 cm * EDV(MOD-sp2) 135.0 ml * LVAs ap2 24.1 cm\S\2 * LVLs ap2 7.9 cm * ESV(MOD-sp2) 63.9 ml * EF(MOD-sp2) 52.7 % * * SV(MOD-sp4) 84.2 ml * SI(MOD-sp4) 39.0 ml/m\S\2 * * SV(MOD-sp2) 71.1 ml * SI(MOD-sp2) 33.0 ml/m\S\2 * * * * * * Doppler Measurements and Calculations * Ao V2 max 161.2 cm/sec * Ao max PG 10.6 mmHg * Ao max PG (full) 5.9 mmHg * TAURUS(V,A) 2.2 cm\S\2 * TAURUS(V,D) 2.2 cm\S\2 * * LV V1 max PG 4.7 mmHg * * LV V1 max 107.2 cm/sec * * TR max sylwia 231.9 cm/sec * *
[2016-09-05] MEDS ORDERED: LIDOCAINE HCL 1% 20 ML VIAL ONE (12:44)
--- NOTE | 2016-09-05 13:23 | Orthopedic Consultation ---
Orthopedic Consultation Date of Consultation: Sep 05, 2016. Attending Physician: Tomi Hansen M.D. Reason for Consultation: Right knee pain and swelling as well as right ankle and wrist pain and swelling History of Present Illness 60 yo male with ~ 2 1/2 weeks of insidious onset right knee pain and swelling. He was seen in PCP's office and started on Doxycycline for possible gout which pt states may have helped minimally. During this time, he's also developed pain and swelling of right wrist and right foot/ankle. He denies any trauma/ injury or h/o previous pain or problems. He denies a h/o gout or any rheumatologic diseases. Past Medical/Surgical History Medical Problems: (1) Abnormal head CT Status: Acute (2) Right sided weakness Status: Acute (3) Swelling of right lower extremity Status: Acute (4) Swelling of right upper extremity Status: Acute Social History Smoking Status: Unknown if Ever Smoked Marital Status: Housing Status: lives with significant other Occupation Status: retired Allergies Coded Allergies: No Known Allergies (Verified , 09/04/16) Home Medications Scheduled Aspirin (Aspirin Ec), 81 MG PO DAILY Carvedilol (Coreg), 25 MG PO BID Doxycycline Monohydrate (Monodox), 100 MG PO BID Furosemide (Lasix), 80 MG PO DAILY Lisinopril (Prinivil), 5 MG PO BID Rosuvastatin Calcium (Crestor), 10 MG PO HS Current Inpatient Medications Current Inpatient Medications Medications (Trade) Dose Ordered Sig/Dylon Route Start Time Stop Time Status Last Admin Dose Admin Acetaminophen (Tylenol Tab) 650 mg Q4H PRN PO 09/04/16 21:45 10/04/16 21:44 Al Hydrox/Mg Hydrox/Simethicone (Maalox Max Susp) 15 ml Q4H PRN PO 09/04/16 21:45 10/04/16 21:44 Magnesium Hydroxide (Milk Of Magnesia Susp) 30 ml Q12H PRN PO 09/04/16 21:45 10/04/16 21:44 Ondansetron HCl (Zofran Inj) 4 mg Q6H PRN IV 09/04/16 21:45 10/04/16 21:44 Carvedilol (Coreg Tab) 25 mg BID PO 09/05/16 09:00 10/05/16 08:59 09/05/16 08:11 25 MG Lisinopril (Zestril Tab) 5 mg BID PO 09/05/16 09:00 10/05/16 08:59 09/05/16 08:11 5 MG Rosuvastatin Calcium (Crestor Tab) 10 mg HS PO 09/05/16 21:00 10/05/16 20:59 09/05/16 00:21 10 MG Gadobutrol (Gadavist) 9.5 mmol UD PRN IV 09/04/16 23:45 09/08/16 23:44 Physical Exam Date Time Temp Pulse Resp B/P (MAP) Pulse Ox O2 Delivery O2 Flow Rate FiO2 09/05/16 11:28 36.7 70 16 116/72 (87) 100 Room Air 09/05/16 08:02 36.5 74 18 117/74 (88) 94 Room Air 09/05/16 08:00 Room Air 09/05/16 08:00 94 Room Air 09/05/16 04:00 Room Air 09/05/16 04:00 37.0 82 16 140/75 (96) 96 Room Air 09/05/16 00:17 37.4 88 16 123/70 98 Room Air 09/05/16 00:03 37.4 88 16 123/70 (87) 98 Room Air 09/04/16 22:46 52 20 107/60 99 Room Air 09/04/16 20:59 83 20 135/85 97 Room Air 09/04/16 19:30 37.6 81 20 126/86 97 Room Air 09/04/16 17:17 37.0 82 18 101/69 99 Room Air General Appearance: WD/WN, no apparent distress Extremities/Musculoskelatal: + pertinent finding (Right knee is painful to motion. Moderate effusion to palpation. Right ankle and foot also swollen and tender to touch and stiff/painful with ROM. Right wrsit mildly swollen and painful as well.) Laboratory Results Last 24 Hours Test 09/04/16 18:11 09/05/16 05:50 White Blood Count 11.28 K/uL 8.71 K/uL Red Blood Count 4.70 M/uL 4.20 M/uL Hemoglobin 13.2 g/dL 11.9 g/dL Hematocrit 41.1 % 36.9 % Mean Corpuscular Volume 87.4 fL 87.9 fL Mean Corpuscular Hemoglobin 28.1 pg 28.3 pg Mean Corpuscular Hemoglobin Concent 32.1 g/dl 32.2 g/dl Platelet Count 395 K/uL 364 K/uL Mean Platelet Volume 9.4 fL 10.0 fL Neutrophils (%) (Auto) 74.7 % Lymphocytes (%) (Auto) 14.0 % Monocytes (%) (Auto) 9.8 % Eosinophils (%) (Auto) 0.7 % Basophils (%) (Auto) 0.2 % Neutrophils # (Auto) 8.42 K/uL Lymphocytes # (Auto) 1.58 K/uL Monocytes # (Auto) 1.11 K/uL Eosinophils # (Auto) 0.08 K/uL Basophils # (Auto) 0.02 K/uL RDW Standard Deviation 41.0 fL 41.6 fL RDW Coefficient of Variation 12.8 % 13.0 % Immature Granulocyte % (Auto) 0.6 % Immature Granulocyte # (Auto) 0.07 K/uL Erythrocyte Sedimentation Rate > 90 mm/hr Sodium Level 139 mmol/L 139 mmol/L Potassium Level 4.3 mmol/L 3.8 mmol/L Chloride Level 101 mmol/L 102 mmol/L Carbon Dioxide Level 27 mmol/L 29 mmol/L Anion Gap 11.0 mmol/L 8.0 mmol/L Blood Urea Nitrogen 26 mg/dl 26 mg/dl Creatinine 1.70 mg/dl 1.50 mg/dl Est Creatinine Clear Calc Drug Dose 55.8 ml/min 65.6 ml/min Estimated GFR () 50.0 58.2 Estimated GFR (Non- 43.2 50.2 BUN/Creatinine Ratio 15.5 17.0 Random Glucose 85 mg/dl 94 mg/dl Calcium Level 9.6 mg/dl 9.3 mg/dl Total Bilirubin 1.1 mg/dl Direct Bilirubin mg/dl Aspartate Amino Transf (AST/SGOT) 38 U/L Alanine Aminotransferase (ALT/SGPT) 62 U/L Alkaline Phosphatase 89 U/L Total Creatine Kinase 121 U/L Creatine Kinase MB 0.6 ng/ml Creatine Kinase MB Ratio 0.5 Troponin I < 0.015 ng/ml C-Reactive Protein 9.88 mg/dl Pro-B-Type Natriuretic Peptide 155 pg/ml Total Protein 8.7 gm/dl Albumin 2.9 gm/dl Chemistry Specimen Hemolysis Rheumatoid Factor < 10.0 U/mL Lyme Disease IgG Antibody NEG Lyme Disease IgM Antibody NEG Hepatitis C Antibody NEG RIGHT ANKLE MIN 3 VIEWS ROUTINE CLINICAL HISTORY: Right ankle pain and swelling. Decreased range of motion. COMPARISON: None FINDINGS: Alignment of the right ankle is anatomic. There is posterior and plantar calcaneal spurring. There is moderate vascular calcification. There is diffuse soft tissue swelling. Talar dome is intact. There is no acute fracture. IMPRESSION: 1. No acute fracture or dislocation of the right ankle. 2. Marked soft tissue swelling of the right ankle. Electronically signed by: Shadi Vogel M.D. 09/04/2016 10:57 PM Dictated Date/Time: 09/04/2016 10:56 PM RIGHT FOOT MIN 3 VIEWS ROUTINE CLINICAL HISTORY: Right foot pain and swelling. COMPARISON: None FINDINGS: Tarsometatarsal joints are intact. There are suspected erosions of the right first metatarsal head. There is soft tissue swelling along the medial aspect the right first metatarsophalangeal joint. Joint spaces are relatively preserved. There may also be erosions of the distal aspect of the proximal phalanx of the right first toe. There is posterior plantar calcaneal spurring. There is no acute fracture within the right foot. IMPRESSION: 1. No acute fracture. 2. Erosions of the right first metatarsal head with associated soft tissue swelling. The findings raise the possibility of gout. Electronically signed by: Shadi Vogel M.D. 09/04/2016 11:01 PM RIGHT KNEE 3 VIEWS CLINICAL HISTORY: Right knee swelling. COMPARISON: None FINDINGS: Alignment of the right knee is anatomic. There is spurring of the tibial tubercle. There is a large right knee joint effusion. No fracture is identified. There is soft tissue swelling of the right knee. IMPRESSION: 1. No acute fracture. 2. Large right knee joint effusion, a nonspecific finding. Electronically signed by: Shadi Vogel M.D. 09/04/2016 10:52 PM RIGHT WRIST MIN 3 VIEWS ROUTINE CLINICAL HISTORY: Right wrist pain and swelling. COMPARISON: None FINDINGS: No acute fracture is identified. Alignment is anatomic. There are equivocal small erosions adjacent to the proximal carpal row and distal radioulnar joint. IMPRESSION: 1. No acute fracture or dislocation of the right wrist. 2. Possible erosions of the proximal carpal row/distal radioulnar joint, a nonspecific finding. Electronically signed by: Shadi Vogel M.D. 09/04/2016 11:03 PM Assessment & Plan 60 yo male with several week h/o right knee pain and swelling along with right wrist and right foot/ankle pain and swelling. Lyme titer and rheumatoid factor negative. Elevated ESR and CRP. Right knee aspirated of ~ 50cc serous inflammatory fluid. Fluid sent for cell count, crystals, aerobic and anaerobic cultures. Will discuss with Dr Hsu and follow along during hospitalization.
[2016-09-05] MEDS ORDERED: NURSING VERBAL MED ORDER ONE (14:00)
[2016-09-05 14:09] LABS: SYNOVIAL FLUID APPEARANCE CLOUDY; SYNOVIAL FLUID COLOR YELLOW; SYNOVIAL FLUID MONONUC RELAT 9.4 %; SYNOVIAL FLUID POLYNUC RELAT 90.6 %
--- NOTE | 2016-09-05 15:43 | Neurology Consultation ---
Neurology Consultation Date of Consultation: Sep 05, 2016. Attending Physician: Tomi Hansen M.D. Primary Care Physician: Robert Dickey PA-C Reason for Consultation: cavernoma History of Present Illness Source: patient, spouse Gurpreet is a 60 year old male a PMH of idiopathic cardiomyopathy and mild systolic CHF, last EF of ~ 47%, CKD stage 3, HTN, HLD presents with R knee, ankle, wrist swelling for the past few weeks. States that his R foot began swelling up and becoming painful a few weeks back; he went to his PCP on 08/20 and was given doxycycline for possible tick-borne illness/arthritis; he states that initially he felt better, but then it worsened again. His knee became significantly painful to any ROM to the point where he was using his cane. He then noticed his right wrist swelling and was seen in the ED. CT head showed an 8mm cavernoma vs. bleed. Today he states he is doing better has been out of bed to the bathroom and still having some LE weakness. He states orthopedics saw him today and removed some of the fluid from his knee. denies CP, SOB, abdominal pain, vision changes, difficulty swallowing, N, V, slurred speech or facial droop his right wrist and knee is painful Past Medical/Surgical History Medical Problems: (1) Abnormal head CT Status: Acute (2) Right sided weakness Status: Acute (3) Swelling of right lower extremity Status: Acute (4) Swelling of right upper extremity Status: Acute Social History Smoking Status: Never smoker Smokeless Tobacco Use: No Alcohol Use: occasionally Drug Use: none Marital Status: Housing Status: lives with significant other Allergies Coded Allergies: No Known Allergies (Verified , 09/04/16) Current Inpatient Medications Current Inpatient Medications Medications (Trade) Dose Ordered Sig/Dylon Route Start Time Stop Time Status Last Admin Dose Admin Acetaminophen (Tylenol Tab) 650 mg Q4H PRN PO 09/04/16 21:45 10/04/16 21:44 Al Hydrox/Mg Hydrox/Simethicone (Maalox Max Susp) 15 ml Q4H PRN PO 09/04/16 21:45 10/04/16 21:44 Magnesium Hydroxide (Milk Of Magnesia Susp) 30 ml Q12H PRN PO 09/04/16 21:45 10/04/16 21:44 Ondansetron HCl (Zofran Inj) 4 mg Q6H PRN IV 09/04/16 21:45 10/04/16 21:44 Carvedilol (Coreg Tab) 25 mg BID PO 09/05/16 09:00 10/05/16 08:59 09/05/16 08:11 25 MG Lisinopril (Zestril Tab) 5 mg BID PO 09/05/16 09:00 10/05/16 08:59 09/05/16 08:11 5 MG Rosuvastatin Calcium (Crestor Tab) 10 mg HS PO 09/05/16 21:00 10/05/16 20:59 09/05/16 00:21 10 MG Gadobutrol (Gadavist) 9.5 mmol UD PRN IV 09/04/16 23:45 09/08/16 23:44 Physical Exam Vital Signs (Past 24 Hrs): Date Time Temp Pulse Resp B/P (MAP) Pulse Ox O2 Delivery O2 Flow Rate FiO2 09/05/16 15:14 36.8 72 16 112/74 (87) 100 Room Air 09/05/16 12:00 Room Air 09/05/16 11:28 36.7 70 16 116/72 (87) 100 Room Air 09/05/16 08:02 36.5 74 18 117/74 (88) 94 Room Air 09/05/16 08:00 Room Air 09/05/16 08:00 94 Room Air 09/05/16 04:00 Room Air 09/05/16 04:00 37.0 82 16 140/75 (96) 96 Room Air 09/05/16 00:17 37.4 88 16 123/70 98 Room Air 09/05/16 00:03 37.4 88 16 123/70 (87) 98 Room Air 09/04/16 22:46 52 20 107/60 99 Room Air 09/04/16 20:59 83 20 135/85 97 Room Air 09/04/16 19:30 37.6 81 20 126/86 97 Room Air 09/04/16 17:17 37.0 82 18 101/69 99 Room Air Physical Exam: Constitutional: appearance nourished, healthy and normal Ears, Nose, Mouth and Throat: mucous membranes moist, no injection and skin normal, eyes normal Cardiovascular: normal S-1 and S-2 and regular rate and rhythm Respiratory:course breath sounds Musculoskeletal:right wrist and knee/ankle edema Skin: no stigmata of neurocutaneous disease noted and normal and intact Eyes: extraocular muscles intact (EOMI) and pupils equal, round and reactive to light (PERRL) NEUROLOGIC EXAMINATION: Mental status: Alert and interactive Oriented to full date and location Oriented to person Speech fluent with no evidence of aphasia Cranial Nerves smile eye brow raise symmetric, tongue midline Sensory: intact to cool touch and vibration Coordination: finger to nose without bipass Gait/Stance: Posture lying in bed Strength: biceps triceps deltoids 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 5/5 bilaterally, hip flex right 4+/5, plantar flex ext 4/5, left hip flex plantar flex ext 5/5 Laboratory Results Past 24 Hours: 09/05/16 05:50 09/05/16 05:50 Test 09/04/16 18:11 09/05/16 00:00 09/05/16 05:50 Immature Granulocyte % (Auto) 0.6 % White Blood Count 11.28 K/uL (4.8-10.8) Red Blood Count 4.70 M/uL (4.7-6.1) 4.20 M/uL (4.7-6.1) Hemoglobin 13.2 g/dL (14.0-18.0) Hematocrit 41.1 % (42-52) Mean Corpuscular Volume 87.4 fL (80-100) 87.9 fL (80-100) Mean Corpuscular Hemoglobin 28.1 pg (25-34) 28.3 pg (25-34) Mean Corpuscular Hemoglobin Concent 32.1 g/dl (32-36) 32.2 g/dl (32-36) Platelet Count 395 K/uL (130-400) Mean Platelet Volume 9.4 fL (7.4-10.4) 10.0 fL (7.4-10.4) Neutrophils (%) (Auto) 74.7 % Lymphocytes (%) (Auto) 14.0 % Monocytes (%) (Auto) 9.8 % Eosinophils (%) (Auto) 0.7 % Basophils (%) (Auto) 0.2 % Neutrophils # (Auto) 8.42 K/uL (1.4-6.5) Lymphocytes # (Auto) 1.58 K/uL (1.2-3.4) Monocytes # (Auto) 1.11 K/uL (0.11-0.59) Eosinophils # (Auto) 0.08 K/uL (0-0.5) Basophils # (Auto) 0.02 K/uL (0-0.2) Immature Granulocyte # (Auto) 0.07 K/uL (0.00-0.02) Erythrocyte Sedimentation Rate > 90 mm/hr (0-14) Total Bilirubin 1.1 mg/dl (0.2-1) Direct Bilirubin mg/dl (0-0.2) Aspartate Amino Transf (AST/SGOT) 38 U/L (15-37) Alanine Aminotransferase (ALT/SGPT) 62 U/L (12-78) Alkaline Phosphatase 89 U/L (45-117) Total Creatine Kinase 121 U/L (39-308) Creatine Kinase MB 0.6 ng/ml (0.5-3.6) Creatine Kinase MB Ratio 0.5 (0-3.0) Troponin I < 0.015 ng/ml (0-0.045) C-Reactive Protein 9.88 mg/dl (0-0.29) Pro-B-Type Natriuretic Peptide 155 pg/ml (0-900) Total Protein 8.7 gm/dl (6.4-8.2) Albumin 2.9 gm/dl (3.4-5.0) Chemistry Specimen Hemolysis Rheumatoid Factor < 10.0 U/mL (0-15) Lyme Disease IgG Antibody NEG (NEG) Lyme Disease IgM Antibody NEG (NEG) Synovial Fluid Source KNEE Synovial Fluid Color YELLOW Synovial Fluid Appearance CLOUDY Synovial Fluid WBC 7706 /uL (0-200) Synovial Fluid RBC < 3000 /uL Synovial Fluid Polynuclear WBCs % 90.6 % Synovial Fluid Mononuclear WBCs % 9.4 % RDW Standard Deviation 41.6 fL (36.4-46.3) RDW Coefficient of Variation 13.0 % (11.5-14.5) Anion Gap 8.0 mmol/L (3-11) Est Creatinine Clear Calc Drug Dose 65.6 ml/min Estimated GFR () 58.2 Estimated GFR (Non- 50.2 BUN/Creatinine Ratio 17.0 (10-20) Calcium Level 9.3 mg/dl (8.5-10.1) Hepatitis C Antibody NEG (NEG) Imaging CT head-. 8 mm hyperdense focus within the posterior left frontal lobe. This favors a small hyperdense lesion such as a cavernoma. However, a small focus of hemorrhage could appear similar. Either a short-term follow-up head CT or MRI of the brain is recommended. Old right parietal infarct. . Moderate white matter hypodensities. While nonspecific, these statistically reflect small vessel disease. MRI with and without contrast-There is a faint focus of hypervascularity in the left parietal lobe with trace associated susceptibility artifact. This is nonspecific but favors a tiny cavernoma. Six-month follow-up MRI is recommended for reassessment. No acute intracranial abnormality is seen. There is no acute hemorrhage, mass effect, or evidence of acute ischemia. MRA head- No significant stenosis, occlusion, or aneurysm within the [place]. TTE Left ventricular systolic function is normal. * Grade I diastolic dysfunction, (abnormal relaxation pattern). * Right ventricular systolic pressure is normal. Impression 60 year old male s/p right sided weakness, MRI with incidental finding of cavernoma Plan 1. incidentally found cavernoma - should repeat imaging in 6 months 2. reviewed with patient this can get bigger and can bleed- should have follow up scanning recommended 3. medical management per primary team 4. will sign off for now will be available for questions concerns. 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
[2016-09-05 18:02] LABS: URINE APPEARANCE CLEAR (CLEAR); URINE BILIRUBIN NEG (NEG); URINE COLOR YELLOW; URINE NITRITE NEG (NEG); URINE PH 5.5 (4.5-7.5); URINE SPECIFIC GRAVITY 1.022 (1.000-1.030); UROBILINOGEN POS (NEG)
[2016-09-05 18:16] LABS: MANUAL MICROSCOPIC REQUIRED? NO; REVIEW REQ? NO
[2016-09-05 19:11] LABS: INR 1.2 (0.9-1.1); PROTHROMBIN TIME (PATIENT) 12.4 SECONDS (9.0-12.0)
[2016-09-05] MEDS: HEPARIN SOD 5000 UNIT/0.5 ML CARP SQ SCH (20:49)
[2016-09-06 04:10] VITALS: BP 103/72; PULSE 74; TEMP 36.8; O2SAT 96
[2016-09-06] MEDS: HEPARIN SOD 5000 UNIT/0.5 ML CARP SQ SCH ×2 (05:52→13:00)
[2016-09-06 07:27] VITALS: BP 113/67; PULSE 73; TEMP 36.8; O2SAT 100
[2016-09-06] MEDS: CARVEDILOL 25 MG TAB PO SCH (08:08)
[2016-09-06] MEDS: LISINOPRIL 5 MG TAB PO SCH (08:08)
[2016-09-06 11:43] VITALS: BP 103/67; PULSE 69; TEMP 36.8; O2SAT 99
--- NOTE | 2016-09-06 12:47 | Progress Note ---
Medicine Progress Note Date & Time of Visit: Sep 06, 2016 at 12:33. Subjective Pt was seen and examined Sitting in bed comfortable with no distress Pt said that he is ready to go home today he said that his right knee swelling and pain seems to improve he said that he has been walking in the hallway with only mild discomfort denies any chest pain, palpitation, fever, chills and sob Objective Last 8 Hrs Date Time Temp Pulse Resp B/P (MAP) Pulse Ox O2 Delivery O2 Flow Rate FiO2 09/06/16 12:00 Room Air 09/06/16 11:43 36.8 69 18 103/67 (79) 99 Room Air 09/06/16 08:00 Room Air 09/06/16 07:27 36.8 73 18 113/67 (82) 100 Room Air Physical Exam: General- No acute distress Head- atraumatic Eyes- PERRL, EOMI ENT- oropharynx clear Neck- supple, no JVD Lungs- clear to auscultation and percussion Heart- regular rhythm; no murmur Abdomen- normal bowel sounds, soft Extremities- no calf tenderness, right knee and right foot swelling and tenderness Neuro- alert, oriented x 3; PERRL, EOMI; no facial palsy; no dysarthria; slight decrease in RUE strength Skin- warm & dry Laboratory Results: Last 24 Hours Test 09/05/16 17:20 09/05/16 18:31 09/06/16 12:13 Urine Color YELLOW Urine Appearance CLEAR Urine pH 5.5 Urine Specific [place] 1.022 Urine Protein NEG Urine Glucose (UA) NEG Urine Ketones NEG Urine Occult Blood NEG Urine Nitrite NEG Urine Bilirubin NEG Urine Urobilinogen POS Urine Leukocyte Esterase NEG Prothrombin Time 12.4 SECONDS Prothromb Time International Ratio 1.2 Assessment & Plan Acute Polyarticular Swelling/Gout Present with R knee, ankle, foot, wrist swelling Lyme titer negative Elevated CRP and ESR Rheumatoid Factor negative Possible related to inflammatory process, such as gout or pseudogout WBC today wnl Right knee xray showed Large right knee joint effusion Right ankle xray showed marked soft tissue swelling of the right ankle. Right foot xray showed Erosions of the right first metatarsal head with associated soft tissue swelling refusing pain medications at this time Ortho consulted for large knee effusion Right knee aspirated of ~ 50cc serous inflammatory fluid done yesterday by ortho Synovial fluid showed Birefringent crystals consistent with monosodium urate that is characteristic for Gout Will not start on NSAID because of CKD Will give a 5 days course of prednisone Check uric acid today, pcp will follow up on it Advised pt about food that can trigger his gout and handout has given Cavernoma 8mm cavernoma noted on Head CT Brain MRI showed faint focus of hypervascularity in the left parietal lobe might associated with cavernoma. follow-up MRI as an outpatient in 6 months MRA head was unremarkable neurology consulted- pending Idiopathic Cardiomyopathy last echo, with EF ~47% Echo pending asymptomatic hold Lasix due to elevated creatine continue Coreg, Lisinopril Will resume lasix Recent ECHO on this admission Showed Left ventricular systolic function is normal. Grade I diastolic dysfunction, (abnormal relaxation pattern). Right ventricular systolic pressure is normal. The left ventricle is grossly normal size. There is normal left ventricular wall thickness. Ejection Fraction = 55-60%. CKD stage 3 creatinine = 1.7 on admission creat 1.5 Avoid nephrotoxic agents DVT ppx SCD on the L On heparin subq CODE STATUS FULL CODE DISPOSITION Follow up appt with your PCP Dr. Dorsey on 09/16 @ 2:45 pm Consultants: Neurology Ortho Current Inpatient Medications: Current Inpatient Medications Medications (Trade) Dose Ordered Sig/Dylon Route Start Time Stop Time Status Last Admin Dose Admin Acetaminophen (Tylenol Tab) 650 mg Q4H PRN PO 09/04/16 21:45 10/04/16 21:44 Al Hydrox/Mg Hydrox/Simethicone (Maalox Max Susp) 15 ml Q4H PRN PO 09/04/16 21:45 10/04/16 21:44 Magnesium Hydroxide (Milk Of Magnesia Susp) 30 ml Q12H PRN PO 09/04/16 21:45 10/04/16 21:44 Ondansetron HCl (Zofran Inj) 4 mg Q6H PRN IV 09/04/16 21:45 10/04/16 21:44 Carvedilol (Coreg Tab) 25 mg BID PO 09/05/16 09:00 10/05/16 08:59 09/06/16 08:08 25 MG Lisinopril (Zestril Tab) 5 mg BID PO 09/05/16 09:00 10/05/16 08:59 09/06/16 08:08 5 MG Rosuvastatin Calcium (Crestor Tab) 10 mg HS PO 09/05/16 21:00 10/05/16 20:59 09/05/16 20:48 10 MG Gadobutrol (Gadavist) 9.5 mmol UD PRN IV 09/04/16 23:45 09/08/16 23:44 Heparin Sodium (Porcine) (Heparin Sq 5000 Unit/0.5ml) 5,000 unit Q8 SQ 09/05/16 22:00 10/05/16 21:59
[2016-09-06] MEDS ORDERED: PRED10TA PO (12:54)
--- NOTE | 2016-09-06 13:05 | Discharge Instructions ---
Discharge Instructions Date of Service Sep 06, 2016. Admission Reason for Admission: Abnormal Head Ct,Swelling Of Right Lower Extremity Discharge Discharge Diagnosis / Problem: Gout/Cavernoma/ CKD stage 3 Discharge Goals Goal(s): Decrease discomfort, Improve function, Improve disease control Activity Recommendations Activity Limitations: resume your previous activity (as tolerated) . Instructions / Follow-Up Instructions / Follow-Up Please follow up with your physician Dr. Dorsey on 09/16 @ 2:45 pm Incidentally found cavernoma, will need to repeat MRI in 6 months Uric acid collected before discharge, your physician will get the result Avoid medication that can damage your kidney such as (NSAIDs) motrin, aleve, naprozen, ibuprofen Continue prednisone for 5 days Current Hospital Diet Patient's current hospital diet: AHA Diet (Heart Healthy), Low Sodium Diet (2gm Na) Discharge Diet Recommended Diet: AHA Diet (Heart Healthy), Low Sodium Diet (2gm Na) Procedures Procedures Performed: Right knee needle aspiration Pending Studies Studies pending at discharge: yes List of pending studies: Joint Synovial fluid culture pending Uric acid level pending Medical Emergencies . Who to Call and When: Medical Emergencies: If at any time you feel your situation is an emergency, please call 911 immediately. . Non-Emergent Contact Non-Emergency issues call your: Primary Care Provider Call Non-Emergent contact if: you have a fever, your pain is not controlled, your pain is worsening, you have any medication questions . . "Provider Documentation" section prepared by Tomi Hansen. . VTE Core Measure Inpt VTE Proph given/why not?: Unfractionated heparin SQ
[2016-09-06 13:17] VITALS: BP 103/67; PULSE 69; TEMP 36.8; O2SAT 99
--- NOTE | 2016-09-07 20:24 | Discharge Summary ---
Discharge Summary Date of Service Sep 07, 2016. Discharge Summary Admission Date: Sep 04, 2016 at 21:59 Discharge Date: Sep 06, 2016 Discharge Disposition: Home Principal Diagnosis: Acute Polyarticular Swelling/Gout Secondary Diagnoses/Problems: Idiopathic Cardiomyopathy Cavernoma CKD stage 3 Procedures: Right knee needle aspiration Consultations: Neurology Ortho Medication Reconciliation New Medications: Prednisone Tab (Prednisone) 10 Mg Tab 30 MG PO DAILY for 5 Days, #15 TAB Continued Medications: Aspirin (Aspirin Ec) 81 Mg Tab 81 MG PO DAILY Carvedilol (Coreg) 25 Mg Tab 25 MG PO BID, TAB Furosemide (Lasix) 80 Mg Tab 80 MG PO DAILY, TAB Lisinopril (Prinivil) 5 Mg Tab 5 MG PO BID, TAB Rosuvastatin Calcium (Crestor) 10 Mg Tab 10 MG PO HS, TAB Discontinued Medications: Doxycycline Monohydrate (Monodox) 100 Mg Cap 100 MG PO BID, CAP Admission Information HPI (per Admitting provider): This is a 60 year old male a PMH of idiopathic cardiomyopathy and mild systolic CHF, last EF of ~ 47%, CKD stage 3, HTN, HLD presents with R knee, ankle, wrist swelling for the past few weeks. States that his R foot began swelling up and becoming painful a few weeks back; he went to his PCP on 08/20 and was given doxycycline for possible tick-borne illness/arthritis; he states that initially he felt better, but then it worsened again. His knee became significantly painful to any ROM to the point where he was using his cane. He then noticed his right wrist swelling and became concerned and came to the ER. Upon presentation, he had a head CT done due to significant weakness on the R side. Head CT showed an 8mm cavernoma vs. bleed. Neurology consulted and recommended keeping the patient here and performing MRI/MRA of the head. Currently, he has very decreased and painful ROM of the knee/ankle; swelling of foot/ankle/knee on the R; no rash, not warm to touch, no cuts/abrasions; no trauma noted by the patient. No fevers/chills, no shortness of breath/chest pain , no nausea/vomiting/diarrhea, no urinary symptoms. Physical Exam (per Admitting): General Appearance: no apparent distress Head: normocephalic, atraumatic Eyes: normal inspection ENT: hearing grossly normal Neck: supple Respiratory/Chest: chest non-tender, lungs clear, normal breath sounds, no respiratory distress, no accessory muscle use Cardiovascular: regular rate, rhythm, no murmur, normal peripheral pulses Abdomen/GI: normal bowel sounds, non tender, soft, no organomegaly Back: normal inspection, no CVA tenderness, no muscle spasm, normal range of motion Extremities/Musculoskelatal: + swelling, + pertinent finding Neurologic/Psych: alert, normal mood/affect Skin: normal color Lymphatic: no adenopathy Hospital Course Acute Polyarticular Swelling Gout Present with R knee, ankle, foot, wrist swelling Lyme titer negative Elevated CRP and ESR Rheumatoid Factor negative Possible related to inflammatory process, such as gout or pseudogout WBC today wnl Right knee xray showed Large right knee joint effusion Right ankle xray showed marked soft tissue swelling of the right ankle. Right foot xray showed Erosions of the right first metatarsal head with associated soft tissue swelling refusing pain medications at this time Ortho consulted for large knee effusion Right knee aspirated of ~ 50cc serous inflammatory fluid done yesterday by ortho Synovial fluid showed Birefringent crystals consistent with monosodium urate that is characteristic for Gout Will not start on NSAID because of CKD Will give a 5 days course of prednisone Check uric acid today, pcp will follow up on it Advised pt about food that can trigger his gout and handout has given Cavernoma 8mm cavernoma noted on Head CT Brain MRI showed faint focus of hypervascularity in the left parietal lobe might associated with cavernoma. follow-up MRI as an outpatient in 6 months MRA head was unremarkable neurology consulted- pending Idiopathic Cardiomyopathy last echo, with EF ~47% Echo pending asymptomatic hold Lasix due to elevated creatine continue Coreg, Lisinopril Will resume lasix Recent ECHO on this admission Showed Left ventricular systolic function is normal. Grade I diastolic dysfunction, (abnormal relaxation pattern). Right ventricular systolic pressure is normal. The left ventricle is grossly normal size. There is normal left ventricular wall thickness. Ejection Fraction = 55-60%. CKD stage 3 creatinine = 1.7 on admission creat 1.5 Avoid nephrotoxic agents DVT ppx SCD on the L On heparin subq CODE STATUS FULL CODE DISPOSITION Follow up appt with your PCP Dr. Dorsey on 09/16 @ 2:45 pm Total time spent on discharge = 35 minutes This includes examination of the patient, discharge planning, medication reconciliation, and communication with other providers. Discharge Instructions DI: Medical v4 Discharge Instructions Date of Service Sep 06, 2016. Admission Reason for Admission: Abnormal Head Ct,Swelling Of Right Lower Extremity Discharge Discharge Diagnosis / Problem: Gout/Cavernoma/ CKD stage 3 Discharge Goals Goal(s): Decrease discomfort, Improve function, Improve disease control Activity Recommendations Activity Limitations: resume your previous activity (as tolerated) . Instructions / Follow-Up Instructions / Follow-Up Please follow up with your physician Dr. Dorsey on 09/16 @ 2:45 pm Incidentally found cavernoma, will need to repeat MRI in 6 months Uric acid collected before discharge, your physician will get the result Avoid medication that can damage your kidney such as (NSAIDs) motrin, aleve, naprozen, ibuprofen Continue prednisone for 5 days Current Hospital Diet Patient's current hospital diet: AHA Diet (Heart Healthy), Low Sodium Diet (2gm Na) Discharge Diet Recommended Diet: AHA Diet (Heart Healthy), Low Sodium Diet (2gm Na) Procedures Procedures Performed: Right knee needle aspiration Pending Studies Studies pending at discharge: yes List of pending studies: Joint Synovial fluid culture pending Uric acid level pending Medical Emergencies . Who to Call and When: Medical Emergencies: If at any time you feel your situation is an emergency, please call 911 immediately. . Non-Emergent Contact Non-Emergency issues call your: Primary Care Provider Call Non-Emergent contact if: you have a fever, your pain is not controlled, your pain is worsening, you have any medication questions . . "Provider Documentation" section prepared by Tomi Hansen. . VTE Core Measure Inpt VTE Proph given/why not?: Unfractionated heparin SQ Additional Copies To Oli Dorsey D.O.
== END 2016-09-06 14:16 | disposition home or self-care (01) | DRG 554 ==
LOC: C.EDB 17:02 → C.MED 21:59 → ENRESERV 22:52
PROVIDERS: ADMIT Family Medicine; ATTEND Internal Medicine
PROC: 0S9C3ZX Drainage of Right Knee Joint, Percutaneous Approach, Diagnostic (ICD-10-PCS; principal; 2016-09-05)
DX: M10.9 Gout, unspecified (principal); I13.0 Hypertensive heart and chronic kidney disease with heart failure and stage 1 through stage 4 chronic kidney disease, or unspecified chronic kidney disease; I42.8 Other cardiomyopathies; I67.89 Other cerebrovascular disease; I50.20 Unspecified systolic (congestive) heart failure; M25.461 Effusion, right knee; D18.02 Hemangioma of intracranial structures; R53.1 Weakness; N18.3 Chronic kidney disease, stage 3 (moderate); Z79.82 Long term (current) use of aspirin; Z79.899 Other long term (current) drug therapy

== ENCOUNTER 2016-09-17 08:50 | Emergency (ER) | payer BC ==
[~2016-09-17] VITALS: Ht 180.3 cm; Wt 96.0 kg
[~2016-09-17 08:50] MED LIST changes: -ALL180 PO; +ASPI81TA28 PO; +CARV25TA PO; +CRS/10 PO; +FURO80TA63 PO; +LISI-729 PO; -TRIA3AER NAE
[2016-09-17 08:55] VITALS: TEMP 36.6; Ht 180.3 cm; Wt 96.0 kg
[2016-09-17] MEDS ORDERED: SODIUM CHLORIDE 0.9% 1000ML 1,000 ML IV STA (09:13)
[2016-09-17] MEDS ORDERED: FURO40TA3 PO (09:28)
[2016-09-17] MEDS ORDERED: PRED10TA PO (09:29)
--- NOTE | 2016-09-17 09:46 | EMERGENCY ROOM VISIT NOTE ---
History Report prepared by Lizzeth: Tyesha Masterson Under the Supervision of: Dr. Archana Soliman M.D. First contact with patient: 09:06 Chief Complaint: REFERRED BY DOCTOR Stated Complaint: SENT BY History of Present Illness The patient is a 60 year old male who presents to the Emergency Room with complaints of constant abnormal labs beginning yesterday. The patient was seen yesterday by Dr. Dorsey. The kidney function lab results came back abnormal. He states that he was seen yesterday for gout to the joints of his right side. He has been taking Lasix until recently he stopped. He states that his gout symptoms improved once he stopped the Lasix. Dr. Dorsey decreased his dosage by half yesterday, he has not taken yet though. The patient was also started on Prednisone yesterday. He has taken two dosages so far. The patient states that he is experiencing no trouble breathing with being off the Lasix. He denies back pain or urinary symptoms. The patient states that he feels better today than he did yesterday. Source of History: patient Onset: yesterday Position: other (global) Quality: other (abnormal labs) Timing: constant Associated Symptoms: No back pain, No urinary symptoms Note: The patient is experiencing gout symptoms to his right sided joints. Review of Systems See HPI for pertinent positives & negatives. A total of 10 systems reviewed and were otherwise negative. Past Medical & Surgical Medical Problems: (1) CHF (congestive heart failure) Family History Cancer Diabetes mellitus Heart disease Hypertension Social History Smoking Status: Never Smoker Alcohol Use: occasionally Drug Use: none Marital Status: Housing Status: lives with significant other Current/Historical Medications Scheduled Aspirin (Aspirin Ec), 81 MG PO DAILY Carvedilol (Coreg), 25 MG PO BID Furosemide (Lasix), 40 MG PO DAILY Lisinopril (Prinivil), 5 MG PO BID Prednisone (Prednisone), Unknown Dose PO UD Rosuvastatin Calcium (Crestor), 10 MG PO HS Allergies Coded Allergies: No Known Allergies (Verified , 09/17/16) Physical Exam Vital Signs Date Time Temp Pulse Resp B/P (MAP) Pulse Ox O2 Delivery O2 Flow Rate FiO2 09/17/16 12:29 66 16 135/87 98 09/17/16 11:07 66 16 127/85 99 Room Air 09/17/16 10:23 74 18 127/80 99 Room Air 09/17/16 09:30 70 09/17/16 08:55 36.6 72 18 113/75 98 Room Air Physical Exam Vital signs reviewed. General: Well-appearing male, in no significant distress. HEENT: No scleral icterus, PERRLA, neck supple. Atraumatic. Cardiovascular: Regular rate and rhythm, no extra sounds. Pulmonary: Clear to auscultation bilaterally, normal work of breathing. Abdomen: Soft, nontender, nondistended, positive bowel sounds. Musculoskeletal: Atraumatic, no peripheral edema. Neurologic: Patient awake alert and oriented x 3, full strength in all 4 extremities. Cranial nerves 2 through 12 grossly intact. Skin: Warm, dry, no rash Medical Decision & Procedures ER Provider Diagnostic Interpretation: Radiology results as stated below per my review and radiologist interpretation: (RENAL)RETROPERITON COMP HISTORY: Renal insufficiency KHANG COMPARISON: 02/10/2007 FINDINGS: Right kidney: Maximum dimension 11.0 cm. Somewhat echogenic renal cortex . 2.5 cm upper pole cyst. Left kidney: Maximum dimension 9.9 cm. No evidence for hydronephrosis. Moderate increase in cortical echogenicity Bladder: No bladder wall thickening. The bilateral ureteral jets were identified. IMPRESSION: 1. No evidence for renal hydronephrosis. 2. Moderate increase in renal cortical echogenicity consistent with nonobstructive renal insufficiency. 3. Small right renal cyst. The above report was generated using voice recognition software. It may contain grammatical, syntax or spelling errors. Electronically signed by: Robert Callahan M.D. 09/17/2016 10:19 AM Dictated Date/Time: 09/17/2016 10:17 AM CHEST ONE VIEW PORTABLE CLINICAL HISTORY: KHANG dyspnea COMPARISON STUDY: 09/04/2016 FINDINGS: The bones soft tissues and hemidiaphragms are normal. The cardiomediastinal silhouette is normal. The lungs are clear. The pulmonary vasculature is normal. IMPRESSION: Negative chest. The above report was generated using voice recognition software. It may contain grammatical, syntax or spelling errors. Electronically signed by: Robert Callahan M.D. 09/17/2016 9:51 AM Dictated Date/Time: 09/17/2016 9:50 AM Laboratory Results 09/17/16 09:30 Red Blood Count 4.37, Mean Corpuscular Volume 85.4, Mean Corpuscular Hemoglobin 27.7, Mean Corpuscular Hemoglobin Concent 32.4, Mean Platelet Volume 9.5, Neutrophils (%) (Auto) 84.3, Lymphocytes (%) (Auto) 10.0, Monocytes (%) (Auto) 5.1, Eosinophils (%) (Auto) 0.1, Basophils (%) (Auto) 0.0, Neutrophils # (Auto) 6.31, Lymphocytes # (Auto) 0.75, Monocytes # (Auto) 0.38, Eosinophils # (Auto) 0.01, Basophils # (Auto) 0.00 09/17/16 09:30 Test 09/17/16 09:30 09/17/16 10:30 White Blood Count 7.49 K/uL (4.8-10.8) Red Blood Count 4.37 M/uL (4.7-6.1) Hemoglobin 12.1 g/dL (14.0-18.0) Hematocrit 37.3 % (42-52) Mean Corpuscular Volume 85.4 fL (80-100) Mean Corpuscular Hemoglobin 27.7 pg (25-34) Mean Corpuscular Hemoglobin Concent 32.4 g/dl (32-36) Platelet Count 220 K/uL (130-400) Mean Platelet Volume 9.5 fL (7.4-10.4) Neutrophils (%) (Auto) 84.3 % Lymphocytes (%) (Auto) 10.0 % Monocytes (%) (Auto) 5.1 % Eosinophils (%) (Auto) 0.1 % Basophils (%) (Auto) 0.0 % Neutrophils # (Auto) 6.31 K/uL (1.4-6.5) Lymphocytes # (Auto) 0.75 K/uL (1.2-3.4) Monocytes # (Auto) 0.38 K/uL (0.11-0.59) Eosinophils # (Auto) 0.01 K/uL (0-0.5) Basophils # (Auto) 0.00 K/uL (0-0.2) RDW Standard Deviation 41.7 fL (36.4-46.3) RDW Coefficient of Variation 13.3 % (11.5-14.5) Immature Granulocyte % (Auto) 0.5 % Immature Granulocyte # (Auto) 0.04 K/uL (0.00-0.02) Anion Gap 6.0 mmol/L (3-11) Est Creatinine Clear Calc Drug Dose 40.9 ml/min Estimated GFR () 34.7 Estimated GFR (Non- 30.0 BUN/Creatinine Ratio 17.7 (10-20) Calcium Level 8.9 mg/dl (8.5-10.1) Magnesium Level 2.5 mg/dl (1.8-2.4) Total Bilirubin 1.0 mg/dl (0.2-1) Direct Bilirubin 0.3 mg/dl (0-0.2) Aspartate Amino Transf (AST/SGOT) 96 U/L (15-37) Alanine Aminotransferase (ALT/SGPT) 119 U/L (12-78) Alkaline Phosphatase 92 U/L (45-117) Total Protein 7.6 gm/dl (6.4-8.2) Albumin 2.7 gm/dl (3.4-5.0) Urine Color YELLOW Urine Appearance CLEAR (CLEAR) Urine pH 5.5 (4.5-7.5) Urine Specific Mcnary 1.019 (1.000-1.030) Urine Protein 1+ (NEG) Urine Glucose (UA) NEG (NEG) Urine Ketones NEG (NEG) Urine Occult Blood NEG (NEG) Urine Nitrite NEG (NEG) Urine Bilirubin NEG (NEG) Urine Urobilinogen POS (NEG) Urine Leukocyte Esterase NEG (NEG) Urine WBC (Auto) 1-5 /hpf (0-5) Urine RBC (Auto) 5-10 /hpf (0-4) Urine Hyaline Casts (Auto) 1-5 /lpf (0-5) Urine Epithelial Cells (Auto) 10-20 /lpf (0-5) Urine Bacteria (Auto) NEG (NEG) Laboratory results per my review. Medications Administered Medications (Trade) Dose Ordered Sig/Dylon Route Start Time Stop Time Status Last Admin Dose Admin Sodium Chloride 1,000 ml @ 125 mls/hr Q8H STAT IV 09/17/16 09:13 09/17/16 12:41 DC 09/17/16 09:38 125 MLS/HR ECG Indication: other (abnormal labs) Rate (beats per minute): 65 Rhythm: normal sinus Findings: nonspecific-ST abn (Anterolateral) Comparison ECG Date: when compared to 01/19/17 the T wave inversion has resolved, intraventricular contraction ED Course 09: Sodium Chloride 1,000 ml @ 125 mls/hr IV. 09: Past medical records reviewed. The patient was evaluated in room A3. A complete history and physical examination was performed. 1152: I reevaluated the patient. He is feeling better and would like to go home. I will discuss results with Dr. Dorsey. 1157: I spoke with Dr. Dorsey about the patient. He is okay with the patient going home and he will see the patient in the office tomorrow. 1221: Upon reevaluation, the patient appeared to have improvement of his symptoms. I discussed findings with the patient. He verbalized agreement of the treatment plan. He was discharged home. Medical Decision The patient is a 60 year old male who presents to the ED with complaints of abnormal labs. Differentials include dehydration, medication effect, infection , ureteral obstruction, bladder obstruction. Medication Reconciliation: I attest that I have personally reviewed the patient' s current medication list. Blood Pressure Screening: Patient was found to have normal blood pressure on screening and does not require follow-up. This patient was evaluated and appeared to be in no significant distress. IV access was obtained and laboratory work was drawn. The patient was hydrated with normal saline solution. Laboratory work reveals a creatinine of 2.3 which is elevated from his baseline, but lower than yesterday when it was 2.9 at the outpatient office. The patient has stopped his Lasix over the last several days. Ultrasound reveals no obstructive changes. Urinalysis is negative. The patient requested be discharged home. I did speak with Dr. Dorsey, the patient' s PCP. He agrees to see the patient tomorrow in follow-up. He has recommended that the patient stop his Lasix as well as his lisinopril. Patient was discharged in care of his with an understanding of the plan. He will return to the ER for worsening of symptoms or any medical concerns. Consults Time Called: [phone] Consulting Physician: Dr. Dorsey Returned Call: [phone] Dorsey about the patient. He is okay with the patient going home and he will see the patient in the office tomorrow. Impression Primary Impression: Acute renal insufficiency Scribe Attestation The scribe's documentation has been prepared under my direction and personally reviewed by me in its entirety. I confirm that the note above accurately reflects all work, treatment, procedures, and medical decision making performed by me. Departure Information Dispostion Home / Self-Care Referrals Robert Dickey PA-C (PCP) Forms HOME CARE DOCUMENTATION FORM, IMPORTANT VISIT INFORMATION, WORK / SCHOOL INSTRUCTIONS Patient Instructions My [facility] Additional Instructions Diagnosis: Acute kidney injury Drink plenty of fluids. Stop lasix, lisinopril. You may continue prednisone. Follow up with Dr Dorsey's office tomorrow, they will contact you. Return to the ED for worsening of symptoms or any medical concerns.
[2016-09-17 09:47] LABS: COMPLETE YES; EOS % 0.1 %; HEMATOCRIT 37.3 % (42-52); IG% 0.5 %; LYMPH ABS # 0.75 K/uL (1.2-3.4); MEAN CELL VOLUME 85.4 fL (80-100); MEAN CORPUSCULAR HEMOGLOBIN 27.7 pg (25-34); MEAN CORPUSCULAR HGB CONC 32.4 g/dl (32-36); MEAN PLATELET VOLUME 9.5 fL (7.4-10.4); MONO % 5.1 %; NEUT % 84.3 %; PLATELET COUNT 220 K/uL (130-400); RED BLOOD COUNT 4.37 M/uL (4.7-6.1); WHITE BLOOD COUNT 7.49 K/uL (4.8-10.8)
--- NOTE | 2016-09-17 09:52 | DIAGNOSTIC IMAGING REPORT ---
CHEST ONE VIEW PORTABLE CLINICAL HISTORY: KHANG dyspnea COMPARISON STUDY: 09/04/2016 FINDINGS: The bones soft tissues and hemidiaphragms are normal. The cardiomediastinal silhouette is normal. The lungs are clear. The pulmonary vasculature is normal. IMPRESSION: Negative chest. The above report was generated using voice recognition software. It may contain grammatical, syntax or spelling errors. Electronically signed by: Robert Callahan M.D. 09/17/2016 9:51 AM Dictated Date/Time: 09/17/2016 9:50 AM
[2016-09-17 10:04] LABS: BUN/CREATININE RATIO 17.7 (10-20); CALCIUM 8.9 mg/dl (8.5-10.1); CREATININE 2.3 mg/dl (0.60-1.40); MAGNESIUM 2.5 mg/dl (1.8-2.4); POTASSIUM 4.3 mmol/L (3.5-5.1)
--- NOTE | 2016-09-17 10:20 | DIAGNOSTIC IMAGING REPORT ---
(RENAL)RETROPERITON COMP HISTORY: Renal insufficiency KHANG COMPARISON: 02/10/2007 FINDINGS: Right kidney: Maximum dimension 11.0 cm. Somewhat echogenic renal cortex . 2.5 cm upper pole cyst. Left kidney: Maximum dimension 9.9 cm. No evidence for hydronephrosis. Moderate increase in cortical echogenicity Bladder: No bladder wall thickening. The bilateral ureteral jets were identified. IMPRESSION: 1. No evidence for renal hydronephrosis. 2. Moderate increase in renal cortical echogenicity consistent with nonobstructive renal insufficiency. 3. Small right renal cyst. The above report was generated using voice recognition software. It may contain grammatical, syntax or spelling errors. Electronically signed by: Robert Callahan M.D. 09/17/2016 10:19 AM Dictated Date/Time: 09/17/2016 10:17 AM
[2016-09-17 10:41] LABS: URINE APPEARANCE CLEAR (CLEAR); URINE BILIRUBIN NEG (NEG); URINE COLOR YELLOW; URINE NITRITE NEG (NEG); URINE PH 5.5 (4.5-7.5); URINE SPECIFIC GRAVITY 1.019 (1.000-1.030); UROBILINOGEN POS (NEG); ZZUR CULT IF INDIC CLEAN CATCH NO
[2016-09-17 10:59] LABS: MANUAL MICROSCOPIC REQUIRED? NO; REVIEW REQ? NO
[2016-09-17 12:29] VITALS: BP 135/87; PULSE 66; O2SAT 98
== END 2016-09-17 12:30 | disposition home or self-care (01) ==
LOC: C.EDB 08:52 → C.EDA 12:30
DX: N28.9 Disorder of kidney and ureter, unspecified (principal); M10.9 Gout, unspecified; I50.9 Heart failure, unspecified; Z80.9 Family history of malignant neoplasm, unspecified; Z83.3 Family history of diabetes mellitus; Z82.49 Family history of ischemic heart disease and other diseases of the circulatory system; Z79.82 Long term (current) use of aspirin; Z79.899 Other long term (current) drug therapy

== ENCOUNTER → 2016-09-20 | Outpatient (CLI) | payer BC ==
[~2016-09-20] MED LIST changes: +FURO40TA3 PO; -FURO80TA63 PO; +PRED10TA PO
--- NOTE | 2016-09-20 08:54 | DIAGNOSTIC IMAGING REPORT ---
CERVICAL WITHOUT CONTRAST HISTORY: Right neuropathy. RIGHT SIDED WEAKNESS TECHNIQUE: Multiplanar multisequence MRI of the cervical spine was performed without the use of contrast. COMPARISON STUDY: None. FINDINGS: Signal characteristics of the osseous structures are unremarkable. Signal characteristics of the cervical cord are within normal limits. There is a posterior disc herniation at C5-C6 level based on the sagittal images. C2-C3: No significant central canal or neural foraminal narrowing. C3-C4: Minimal central disc bulge. C4-C5: No significant central canal or neural foraminal narrowing. C5-C6: Right posterior disc herniation creating significant focal deformity right anterior cervical cord. There is significant narrowing of the right neuroforamina. Minimal narrowing left neuroforamina. C6-C7: No significant central canal or neural foraminal narrowing. C7-T1: No significant central canal or neural foraminal narrowing. IMPRESSION: 1. Right posterior lateral disc herniation C5-C6 creating significant focal deformity of the cervical cord as well as considerable narrowing of the right neuroforamina The above report was generated using voice recognition software. It may contain grammatical, syntax or spelling errors. Electronically signed by: Robert Callahan M.D. 09/20/2016 8:53 AM Dictated Date/Time: 09/20/2016 8:47 AM
== END | disposition home or self-care (01) ==
LOC: C.MRIBC 08:00
PROVIDERS: ATTEND Internal Medicine
DX: R53.1 Weakness (principal); M50.20 Other cervical disc displacement, unspecified cervical region

== ENCOUNTER → 2016-10-10 | Outpatient (CLI) | payer BC ==
[2016-10-10 12:14] LABS: HEMATOCRIT 35.7 % (42-52); MEAN CELL VOLUME 88.6 fL (80-100); MEAN CORPUSCULAR HGB CONC 31.7 g/dl (32-36); MEAN PLATELET VOLUME 9.7 fL (7.4-10.4); PLATELET COUNT 254 K/uL (130-400); RED BLOOD COUNT 4.03 M/uL (4.7-6.1); WHITE BLOOD COUNT 4.62 K/uL (4.8-10.8)
[2016-10-10 12:17] LABS: URINE APPEARANCE CLEAR (CLEAR); URINE BILIRUBIN NEG (NEG); URINE COLOR DK YELLOW; URINE EPITHELIAL CELL AUTO 0-5 /lpf (0-5); URINE NITRITE NEG (NEG); URINE PH 5.5 (4.5-7.5); URINE SPECIFIC GRAVITY 1.024 (1.000-1.030); UROBILINOGEN POS (NEG)
[2016-10-10 12:36] LABS: MANUAL MICROSCOPIC REQUIRED? NO; REVIEW REQ? NO
[2016-10-10 12:37] LABS: BLOOD UREA NITROGEN 15 mg/dl (7-18); BUN/CREATININE RATIO 11.2 (10-20); CALCIUM 8.8 mg/dl (8.5-10.1); CARBON DIOXIDE 27 mmol/L (21-32); CHLORIDE 108 mmol/L (98-107); GLUCOSE 119 mg/dl (70-99); POTASSIUM 3.9 mmol/L (3.5-5.1); SODIUM 140 mmol/L (136-145)
[2016-10-10 12:38] LABS: PHOSPHORUS 2.1 mg/dl (2.5-4.9)
[2016-10-10 12:39] LABS: URINE PROTIEN/CREAT RATIO 0.1 (0-0.2); URINE TOTAL PROTEIN 33.2 mg/dl (0-11.9)
== END | disposition home or self-care (01) ==
LOC: C.LAB1850 10:10
PROVIDERS: ATTEND Internal Medicine Nephrology
DX: N25.81 Secondary hyperparathyroidism of renal origin (principal); N18.3 Chronic kidney disease, stage 3 (moderate); D64.9 Anemia, unspecified; I12.9 Hypertensive chronic kidney disease with stage 1 through stage 4 chronic kidney disease, or unspecified chronic kidney disease; I42.9 Cardiomyopathy, unspecified; E55.9 Vitamin D deficiency, unspecified

== ENCOUNTER → 2017-04-14 | Outpatient (CLI) | payer BC ==
[2017-04-14 16:37] LABS: HEMATOCRIT 46.1 % (42-52); HEMOGLOBIN 14.7 g/dL (14.0-18.0); MEAN CORPUSCULAR HEMOGLOBIN 28.4 pg (25-34); MEAN CORPUSCULAR HGB CONC 31.9 g/dl (32-36); MEAN PLATELET VOLUME 10.6 fL (7.4-10.4); PLATELET COUNT 155 K/uL (130-400); RED CELL DISTRIBUTION WIDTH CV 13.4 % (11.5-14.5); WHITE BLOOD COUNT 5.36 K/uL (4.8-10.8)
[2017-04-14 17:10] LABS: ALBUMIN 3.6 gm/dl (3.4-5.0); BLOOD UREA NITROGEN 17 mg/dl (7-18); CALCIUM 8.5 mg/dl (8.5-10.1); CARBON DIOXIDE 30 mmol/L (21-32); CREATININE 1.46 mg/dl (0.60-1.40); GLUCOSE 78 mg/dl (70-99); POTASSIUM 4.2 mmol/L (3.5-5.1); SODIUM 140 mmol/L (136-145); URIC ACID 5.9 mg/dl (2.6-7.2)
[2017-04-14 17:11] LABS: PHOSPHORUS 2.1 mg/dl (2.5-4.9)
== END | disposition home or self-care (01) ==
LOC: C.LAB1850 15:04
PROVIDERS: ATTEND Internal Medicine Nephrology
DX: N25.81 Secondary hyperparathyroidism of renal origin (principal); N18.3 Chronic kidney disease, stage 3 (moderate); D64.9 Anemia, unspecified; I12.9 Hypertensive chronic kidney disease with stage 1 through stage 4 chronic kidney disease, or unspecified chronic kidney disease; E55.9 Vitamin D deficiency, unspecified

== ENCOUNTER → 2017-10-17 | Outpatient (CLI) | payer BC ==
[2017-10-17 17:43] LABS: HEMATOCRIT 47.3 % (42-52); HEMOGLOBIN 15.4 g/dL (14.0-18.0); MEAN CELL VOLUME 88.4 fL (80-100); MEAN CORPUSCULAR HEMOGLOBIN 28.8 pg (25-34); MEAN CORPUSCULAR HGB CONC 32.6 g/dl (32-36); MEAN PLATELET VOLUME 11.5 fL (7.4-10.4); PLATELET COUNT 151 K/uL (130-400); RED CELL DISTRIBUTION WIDTH CV 13.5 % (11.5-14.5); RED CELL DISTRIBUTION WIDTH SD 43.8 fL (36.4-46.3); WHITE BLOOD COUNT 6.62 K/uL (4.8-10.8)
[2017-10-17 17:57] LABS: ALBUMIN 3.8 gm/dl (3.4-5.0); ALKALINE PHOSPHATASE 84 U/L (45-117); ALT/SGPT 25 U/L (12-78); AST/SGOT 26 U/L (15-37); BLOOD UREA NITROGEN 18 mg/dl (7-18); CALCIUM 8.5 mg/dl (8.5-10.1); CARBON DIOXIDE 29 mmol/L (21-32); CREATININE 1.74 mg/dl (0.60-1.40); GLUCOSE 78 mg/dl (70-99); POTASSIUM 3.7 mmol/L (3.5-5.1); SODIUM 142 mmol/L (136-145); TOTAL PROTEIN 7.6 gm/dl (6.4-8.2)
== END | disposition home or self-care (01) ==
LOC: C.LAB1850 16:10
PROVIDERS: ATTEND Internal Medicine Nephrology
DX: N25.81 Secondary hyperparathyroidism of renal origin (principal); N18.3 Chronic kidney disease, stage 3 (moderate); I42.9 Cardiomyopathy, unspecified; I12.9 Hypertensive chronic kidney disease with stage 1 through stage 4 chronic kidney disease, or unspecified chronic kidney disease; E55.9 Vitamin D deficiency, unspecified